=== PATIENT | female | born 1955 | race Caucasian/White ===

== ENCOUNTER 2024-07-20 17:47 | Inpatient (IN) | payer OTHER, SELFPAY ==
[2024-07-20 15:35] VITALS: BP 169/90
--- NOTE | 2024-07-20 16:06 | ED.GENMED ---
History of Present Illness
General
Chief Complaint: Cardiac Symptoms
Source: patient
Exam Limitations: none
Time Seen by Provider: 07/20/24 15:42
History of Present Illness
History of Present Illness:
68yoF with a history of aortic stenosis s/p aortic valve replacement, AV block s/p pacemaker in 2016, hypertension, hyperlipidemia, type 2 diabetes presenting for evaluation of a pacemaker issue. Patient recently re-established with cardiology
after not having seen a physics teacher since before [facility]. She had an echocardiogram on 06/27/24 which showed severe stenosis of prosthetic aortic valve. She saw Dr. Soria last week and was scheduled to have a pacemaker interrogation today. She had
the interrogation done and was told that the device has reached the end of its life and she was told to go to the ED immediately because she could drop . Patient is scheduled to have a cardiac catheterization next week. She admits to having
intermittent episodes of dyspnea over the past 1-2 months. She denies any syncopal episodes or chest pain.
Phy Exam
General Physical Exam
General Presentation: well appearing and no apparent distress
General Skin: warm and dry
General Habitus: normal
General Mental: alert
ENT Exam
ENT Exam: normocephalic
Cardiovascular Exam
Cardiovascular Exam: systolic murmur
Pulmonary Exam
Pulmonary Exam: lungs clear, no respiratory distress, no rales, no crackles, no rhonchi and no wheezing
Neurological Exam
Neurological Exam: alert
Sukumar Coma Scale
Eye Opening: Spontaneous
Verbal Response: Oriented
Motor Response: Obeys Commands
GCS Total Score: 15
Skin Exam
Skin Exam: normal color and warm/dry
Psychiatric Exam
Psychiatric Exam: anxious
Course
Orders/Labs/Results
Orders:
Orders
07/20/24 15:43
Electrocardiogram (*1) Urgent
Reason for Study: PreOp
EKG- Treatment ONCE
07/20/24 16:05
Cardiac Monitoring- Treatment ONCE
CR Chest - 2 Views Urgent
Comment:
Reason For Exam: SOB
07/20/24 16:40
Complete Blood Count/With Diff Urgent
Comprehensive Metabolic Panel Urgent
Troponin I Urgent
07/20/24 17:03
Admit/Transfer Patient As Directed
Co-Sign Provider:
Level of Care: Inpatient admission
Assign to:: IVU
Physician / Group: keerthi alfredo
Diagnosis: end of pacemaker battery life, symp Aortic stenosis
Reason for Hospitalization: end of pacemaker battery life, symp Aortic stenosis
Expected length of stay greater than two midnights?: Yes
ELOS- Estimated Length of Stay in days: 7
I certify the patient meets the requirements for IP care: Yes
Code Status As Directed
Resuscitation Status: Full Code
07/20/24 17:07
PRN Pain Medication Management As Directed
May give lesser potent ordered pain med per pt: Yes
preference::
Protocol:: Medication orders for pain may be administered in a
manner that supports deferring to patient preference
when the pt is:
- Requesting an ordered lesser potent pain medication.
Least to most potent pain medications are defined
as: acetaminophen < NSAID < tramadol < opioids
(morphine, oxycodone, hydromorphone).
- Requesting a lesser dose of the same medication IF
ORDERED.
- Requesting a less intrusive route of administration
if both routes are prescribed by the provider (PO <
IV).
Abnormal Lab Results
07/20/24
16:40
MPV 10.5 H fL
(7.4-10.4)
Creatinine 0.5 L mg/dL
(0.6-1.0)
Glucose 231 H mg/dl
(70-99)
07/20/24 16:40
07/20/24 16:40
Vital Signs
Initial and Last Documented VS:
Initial Vital Signs
Temp Pulse Resp BP Pulse Ox
98.1 F 65 20 169/90 93
07/20/24 15:35 07/20/24 15:35 07/20/24 15:35 07/20/24 15:35 07/20/24 15:35
Last Documented Vital Signs
Temp Pulse Resp BP Pulse Ox
98.1 F 65 20 169/90 89
07/20/24 15:35 07/20/24 16:33 07/20/24 16:33 07/20/24 15:35 07/20/24 16:33
MDM/Problems Addressed
Differential Diagnosis Includes:
68yoF referred here by cardiology due to her pacemaker nearing the end of its battery life on today's interrogation. C/o intermittent dyspnea x 1-2 months. Currently being evaluated for TAVR after recent echo showed stenosis of prosthetic aortic
valve. Denies symptoms currently other than feeling anxious. BP 169/90. Remainder of vitals stable. She is well appearing in no distress.
EKG shows ventricular paced rhythm. Cardiac labs and CXR ordered. Cardiology consulted and patient admitted to the hospitalist service for further management.
*EKG
Interpreted by ED Provider?: Yes
EKG Intrepretation Date: 07/20/24
Heart Rate: 66
Rate: normal
Rhythm: PVC's and ventricular paced
Ischemia: non-specific ST changes
*Critical Care Note
Total Time (30-74mins, 75-104mins- exclusive of procedures): Not Applicable
ED Attending Note
-
Portions of this chart may have been created with voice recognition software.� Occasional wrong word or��sound alike� substitutions may have occurred due to the inherent limitations of voice recognition software.
Discharge Plan
Departure
Patient Disposition: Admit
Date of Disposition: 07/20/24
Time of Disposition: 16:13
Presentation/result/management discussed w/ accepting MD/DO: Hospitalist
Discharge Problem:
Pacemaker at end of battery life
Interventions
Interventions:
*Risk Screen - Suicide Last Done: 07/20/24 17:46
*General Assessment Last Done: 07/20/24 15:35
*Neglect/Abuse Screening Last Done: 07/20/24 16:39
*ED- Fall Risk Assessment Last Done: 07/20/24 17:54
*ED COVID-19 Vaccine History Last Done: 07/20/24 17:54
ED- Pulmonary Assessment Last Done: 07/20/24 17:10
ED- Cardiac Assessment Last Done: 07/20/24 17:10
--- NOTE | 2024-07-20 16:24 | HPS.HSE ---
Family Physician
<JOE Dumont - Last Filed: 07/20/24 18:06>
-
Family Physician:
Chief Complaint
<JOE Dumont - Last Filed: 07/20/24 18:06>
History of Present Illness
68-year-old female was evaluated by a superintendent drilling last week cardiology Dr. Soria at [facility] and was scheduled to have a pacemaker interrogation today. She was told that the device reached its end of its battery life and was told to
go to the ER immediately. She does report complaints of dyspnea over the past 1 to 2 months. She denies syncope, chest pain, palpitations, cough, fever, chills, abdominal pain, nausea, vomiting, diarrhea, urinary symptoms. She is scheduled to
have a cardiac cath next week. She was unaware that she had to follow her pacemaker for interrogations and battery life. She had Medtronic Permanent pacemaker placed in 2016 secondary to AV block during aortic stenosis surgery at [facility] in
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
<Curtis Hough MD - Last Filed: 07/20/24 17:37>
-
[place]
Medical History
<JOE Dumont - Last Filed: 07/20/24 18:06>
Past Medical History
Past Medical History: Reports Other
Additional Past Medical History:
Medtronic permanent pacemaker placed in 2016 secondary to AV block
history aortic stenosis status post AVR
HTN
HLD
DM 2
GERD
Renal calculi multiple with history of right nephrostomy tube status post removal of large stone from right kidney
Class I obesity
Past Surgical History: Reports Other
Additional Past Surgical History:
Cholecystectomy
Tonsillectomy as child
Medtronic pacemaker placed 2016 AV block [facility]-
Renal calculi removal
Aortic stenosis status post AVR 2016 [facility]-
Right knee arthroscopy x 2
Nephrostomy tube right kidney to extract large renal calculi
Social History
Tobacco: Former Smoker (15 years 1.5 pack a day quit 35 years ago)
Alcohol: None
Drug: None
Personal:
Living: With Family ()
Employment: Retired
Family History
Family History: Early CAD (Mother first [place] age 56, second [place] age 79, history of CVA in her 70s, father from cardiomegaly secondary to malaria at age 62)
Allergies / Home Medications
Allergies reflects when Allergies were last updated in [facility].
Home Medications with original date entered in [facility]
Allergy/Medication List:
Allergies
Allergy/AdvReac Type Severity Reaction Status Date / Time
Sulfa (Sulfonamide Allergy Unknown Verified 07/20/24 15:34
Antibiotics)
Home Medications
metformin 500 mg tablet,extended release 24 hr 500 mg PO QPM 07/20/24
metoprolol succinate 25 mg tablet,extended release 24 hr 25 mg PO QPM 07/20/24
omeprazole 20 mg capsule,delayed release 20 mg PO QPM 07/20/24
simvastatin 40 mg tablet 40 mg PO QPM 07/20/24
valsartan 320 mg tablet 320 mg PO QPM 07/20/24
Review of Systems
<JOE Dumont - Last Filed: 07/20/24 18:06>
-
History Source: Patient and Family ( at bedside)
A 12 point ROS was completed and negative except as noted: Yes
Constitutional: Denies Fever
EENT: Reports Other (Chronic postnasal drip); Denies Sore Throat
Respiratory: Reports Trouble Breathing (Occasional shortness of breath and dyspnea on exertion); Denies Cough
Cardiac: Denies Chest Pain, Diaphoresis, Palpitations or Syncope
Abdomen/GI: Denies Abdominal Pain, Nausea, Vomiting, Diarrhea, Constipated, Bloody Stools or Black Stools
: Denies Dysuria, Frequency, Flank Pain, Incontinence, Difficulty Voiding or Urgency
Musculoskeletal: Denies Joint Pain, Joint Swelling or Edema
Skin: Denies Itching or Rash
Neurological: Denies Dizzy, Headache or Weakness
Endocrine: Reports No Symptoms
Hematologic/Lymphatic: Reports No Symptoms
Psych: Reports Calm
Physical Exam
<JOE Dumont - Last Filed: 07/20/24 18:06>
Vital Signs
Vital Signs
Temp Pulse Resp BP Pulse Ox
98.1 F 65 20 169/90 93
07/20/24 15:35 07/20/24 15:35 07/20/24 15:35 07/20/24 15:35 07/20/24 15:35
Physical Exam
General: Comfortable, Conversant and Obese; No Pain, Fever or Chills
HEENT: NormoCephalic, Anicteric, PERRLA and [place] Conjunctivae
Respiratory: Clear; No Wheezes, Rales or Rhonchi
Cardiac: S1/S2, Murmur (3/6 systolic murmur) and Other (Paced rhythm); No Rub or Gallop
GI: Soft, Non Tender, Non Distended, Normal Bowel Sounds and No Hepatosplenomegaly
Genito-urinary: Deferred by me
Musculoskeletal: No Clubbing, No Cyanosis and No Edema
Skin: Warm and Dry; No Rash or Jaundice
Neuro: AO x 3, No Motor Deficits, Nonfocal/grossly intact, Cranial Nerves Intact, No Sensory Deficits and Tremors; No Slurred Speech, Facial Droop or Sedated
Psych: Calm
Data Reviewed
<JOE Dumont - Last Filed: 07/20/24 18:06>
-
Lab Data: Labs Reviewed by me
Impression/Plan
<JOE Dumont - Last Filed: 07/20/24 18:06>
-
Impression/plan:
Admit to IVU
#Medtronic permanent pacemaker end of battery life
#Placed during aortic valve replacement due to unicuspid aortic valve 2015 [facility]-
- Consult electrophysiology patient follows with [facility] cardiology
- Current ASSET RECOVERY SPECIALIST paced rhythm on EKG 66 bpm no previous EKGs
- Plan is for battery change on 07/24/2024
#Cardiac murmur suspect aortic stenosis
#Hx aortic valve replacement due to unicuspid aortic valve 2015 [facility]-
Is due for cardiac cath on 07/25/2024 with [facility] cardiology
#HTN�benign
BP 169/90
- Continue metoprolol succinate 25 mg every afternoon, valsartan 320 mg every afternoon
#DM2
Accu-Cheks with SSI, check HgbA1c
- Hold metformin 500 mg every afternoon
#GERD
- Continue omeprazole 20 mg every afternoon
#HLD
- Check lipid profile
- Continue Zocor 40 mg every afternoon
DVT prophylaxis
Subcu Lovenox
Full code
--- NOTE | 2024-07-20 16:37 | CON.CAR ---
Addendum entered and electronically signed by Jackson Pugh MD 07/20/24 17:29:
I saw and examined the patient.
The Surgical Coder's note was reviewed and I agree with the note.
Comment: Briefly, 68-year-old woman past medical history of TAVR and permanent pacemaker placed for complete heart block following TAVR procedure. She has not been regularly following with a drop wire hanger and recently established with Hakeem Soria.
Device interrogation in his office today determined that her pacemaker was at end-of-life and he recommended she proceed to [facility] emergency department for evaluation.
Spoke with electrophysiology. Tentative plan for pacemaker generator change on Monday 07/24.
Plan to monitor on telemetry here over the weekend
Patient is scheduled to meet with Dr. Healy in our office as well as have TAVR CT scan this coming Tuesday
Rest per Brit Conway
For now would keep those appointments
Original Note:
Consultation
Consultation Request
Date/Time Consultation Performed: 07/20/24
Requesting Provider: Dr. Hess
Performing Provider: Brit Conway PA-C for Dr. Pugh
Reason for Consultation: device EOS
Medical History
-
Chief Complaint: device issue
History of Present Illness:
Patient is a 68-year-old female with past medical history of unicuspid aortic valve status post bioprosthetic #21 Daniel aortic valve replacement in 2016 at [facility]. Her postoperative course was complicated by heart block requiring permanent
pacemaker placement, Medtronic. She reports postoperatively she was not told that anyone would need to follow her pacemaker, and therefore has not had device monitoring since implant by her recollection. She underwent echocardiogram 05/2024 which
showed evidence of severe prosthetic aortic valve stenosis with peak/mean gradients of 66/42 mmHg and SHAHNAZ 0.85 cm�. She was then referred to see Dr. Ma, CT surgery on 07/11/2024. He arranged patient to establish cardiovascular care with
Hakeem Soria, with initial visit on 07/12/2024. Her device was not interrogated at that visit and she was brought back for device interrogation today 07/20/2024. On interrogation, device was noted to be at end of service and she is device dependent,
therefore patient was referred to [facility] for generator change. She has no present complaints of chest pain, shortness of breath, palpitations, lightheadedness or dizziness.
PMH:
Congenital unicuspid aortic valve stenosis status post bioprosthetic #21 Daniel AVR 2016 at [facility]
Heart block status post Medtronic permanent pacemaker, right sided
Hypertension
Hyperlipidemia
Type 2 diabetes
Morbid obesity
Osteoporosis
Remote former smoker
Past Medical History
Past Medical History: Other (in HPI)
Social History
Tobacco: Former Smoker (remote)
Alcohol: None
Personal:
Living: With Family
Family History
Family History: Hypertension
Allergies / Home Medications
Allergy/AdvReac Type Severity Reaction Status Date / Time
Sulfa (Sulfonamide Allergy Unknown Verified 07/20/24 15:34
Antibiotics)
�Medication �Instructions �Recorded �Confirmed �Type
metformin 500 mg tablet,extended 500 mg PO QPM 07/20/24 07/20/24 History
release 24 hr
metoprolol succinate 25 mg 25 mg PO QPM 07/20/24 07/20/24 History
tablet,extended release 24 hr
omeprazole 20 mg capsule,delayed 20 mg PO QPM 07/20/24 07/20/24 History
release
simvastatin 40 mg tablet 40 mg PO QPM 07/20/24 07/20/24 History
valsartan 320 mg tablet 320 mg PO QPM 07/20/24 07/20/24 History
Review of Systems
-
History Source: Patient and Family
All other systems: Negative unless noted
Physical Exam
Vital Signs
Temp Pulse Resp BP Pulse Ox
98.1 F 65 20 169/90 93
07/20/24 15:35 07/20/24 15:35 07/20/24 15:35 07/20/24 15:35 07/20/24 15:35
Physical Exam
General: No Apparent Distress, Comfortable and Other (obese)
HEENT: Normocephalic, Anicteric and Moist Mucous Membranes
Respiratory: Clear and Non Labored Respirations
Cardiac: S1/S2 and Regular Rhythm
GI: Soft, Non Tender, Non Distended and Normal Bowel Sounds
Musculoskeletal: No Clubbing, No Cyanosis and No Edema
Skin: Warm and Dry
Neuro: AO x 3
Impression / Plan
-
Primary Director Of Security: Dr. Hakeem Soria
Assessment:
PPM EOS, pacemaker dependent
Congenital unicuspid aortic valve stenosis status post bioprosthetic #21 Daniel AVR 2016 at [facility]
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
Heart block status post Medtronic permanent pacemaker, right sided
Hypertension
Hyperlipidemia
Type 2 diabetes
Morbid obesity
Osteoporosis
Remote former smoker
ECHO 06/27/24: Peak/mean gradient 66/42 mmHg with SHAHNAZ 0.85 cm�
Plan:
- Patient presents on referral from [facility] cardiology office due to device interrogation in office today which showed device at end of service. She is pacemaker dependent and was referred to [facility] for further evaluation and
treatment.
- She is currently V-paced by EKG
- Will plan for generator change on 07/24/2024. If needed in interim, could consider for temp wire.
- Complicating matters, she is presently planned for evaluation with structural heart team, Dr. Healy on Tuesday 07/[address] scan to follow. She is tentatively planned for cath on 07/27
- Upon discussion with EP as well as interventional cardiology, will plan for generator change on Monday 07/24. Ideally would complete cath prior to generator change however TAVR CT results are necessary to have prior to cath to determine
measurements of coronaries to AV which helps to determine if stenting vs bypass would be better option for patient. therefore, will plan to keep structural heart team consult with Dr. Healy on 07/25 as planned with TAVR CT to follow. the cath she has
planned on 07/27 may need to be delayed to the following week to allow for TAVR CT to result fully as well as to allow PPM pocket to heal prior to receiving heparin needed for cath.
- d/w hospitalist HEALTH PROMOTION MANAGER
- d/w patient and at bedside
Data Reviewed
-
EKG: Tracing Personally Visualized and interpreted
Medical Tests (Nuc Med, Echo etc): Report Reviewed by me
Labs: Labs Reviewed by me
Old Records: Reviewed
[2024-07-20 16:48] LABS: % Basophils 0.4 % (0-2); % Eosinophils 2.4 % (0-6); % Immature Granulocytes 0.5 % (0-0.5); % Lymphocytes 25.2 % (20.5-51.1); % Monocytes 6.3 % (1.7-9.3); % Neutrophils 65.2 % (42.2-75.2); Absolute Eosinophils 0.2 10^3/uL (0-0.7); Absolute Lymphocytes 2.1 10^3/uL (1.2-3.4); Absolute Monocytes 0.5 10^3/uL (0.1-0.6); Absolute Neutrophils 5.5 10^3/uL (1.4-6.5); Hematocrit 42.3 % (37.0-47.0); Hemoglobin 14.6 g/dL (12.0-16.0); Mean Corp Hgb Conc. 34.5 g/dL (33.0-37.0); Mean Corpuscular Hgb 28.7 pg (27.0-31.0); Mean Corpuscular Volume 83.3 fL (81.0-99.0); Mean Platelet Volume 10.5 fL (7.4-10.4); Nucleated Red Blood Cells % 0 %; Platelet Count 185 10^3/uL (130-400); Red Blood Cell Count 5.08 10^6/uL (4.20-5.40); Red Cell Dist. Width 12.8 % (11.5-14.5); White Blood Cell Count 8.4 10^3/uL (4.8-10.8)
[2024-07-20 17:00] VITALS: BP 147/72
[2024-07-20 17:01] LABS: ALT (SGPT) 16 U/L (0-35); AST (SGOT) 22 U/L (14-36); Albumin 4.2 g/dl (3.5-5.0); Alkaline Phosphatase 48 U/L (38-126); Blood Urea Nitrogen 10 mg/dl (7-17); Calcium 9.4 mg/dl (8.4-10.2); Carbon Dioxide 24 mmol/L (22-30); Chloride 107 mmol/L (98-107); Glucose 231 mg/dl (70-99); Potassium 4.1 mmol/L (3.5-5.1); Sodium 139 mmol/L (135-145); Total Protein 7.2 g/dl (6.3-8.2); eGFR > 60.00
[2024-07-20 17:13] LABS: Troponin I < 0.012 ng/ml
--- NOTE | 2024-07-20 17:38 | W.PN.UPDATE ---
Update Note
Progress Note Update
I saw and examined the patient.
The NUTRITION AIDES TEACHER or PA's note was reviewed and I agree with the note.
Comment: 68-year-old female with past medical history of hypertension, hyperlipidemia, diabetes mellitus, GERD, aortic stenosis status post AVR, Medtronic permanent pacemaker secondary AV block CAD came to the hospital from cardiology office for
pacemaker. Patient also has stenosis of her aortic valve and has been seen by Dr. Ma for TAVR. Prior to the procedure patient has been scheduled for cardiac catheterization. Patient really denies any chest pain. Does noted dyspnea on
exertion. Admit to IVU. Monitor on telemetry. Pacemaker per cardiology. Hold metformin
General: Comfortable, Conversant and Obese; No Pain, Fever or Chills
HEENT: NormoCephalic, Anicteric, PERRLA and [place] Conjunctivae
Respiratory: Clear; No Wheezes, Rales or Rhonchi
Cardiac: S1/S2, Murmur (3/6 systolic murmur) and Other (Paced rhythm); No Rub or Gallop
GI: Soft, Non Tender, Non Distended, Normal Bowel Sounds
Musculoskeletal: No Edema
Neuro: AO x 3, No Motor Deficits, Nonfocal/grossly intact, Cranial Nerves Intact
Psych: Calm
I spent a total of 76 minutes with the patient or on the floor. More than 50% of this time involved counseling and coordination of care.
[2024-07-20 17:54] VITALS: BMI 44.9
[2024-07-20 18:14] VITALS: BP 145/77
[2024-07-20 20:57] VITALS: BP 156/84
[2024-07-20 21:20] VITALS: BP 162/75
[2024-07-20 21:39] LABS: Glucose - Point of Care 219 mg/dl (70-99)
[2024-07-20 21:43] VITALS: BMI 42.2
[2024-07-20] MEDS: LOVENOX 40 MG SC (22:07)
[2024-07-20] MEDS: DIOVAN 320 MG PO (22:07)
[2024-07-20] MEDS: PROTONIX 40 MG PO (22:07)
[2024-07-20] MEDS: TOPROL XL 25 MG PO (22:07)
[2024-07-20] MEDS: LIPITOR PO (22:09)
[2024-07-21] VITALS (7 sets, daily range): BP systolic 114–148; BP diastolic 67–83; PULSE 65
--- NOTE | 2024-07-21 00:26 | PTCARENOTE ---
Pt rec'd from ED on stretcher awake,alert joking with staff. ambulated safely to bathroom with no c/o dizziness. Adm hx taken and recorded. Pt refused Lipitor at HS stating she had severe leg cramps when taking that so tolerates Simvastatin better.
to bring in from home if ok with Physician to switch. V paced on telemetry ,+ murmur. HS accu check 219 pt reports having ate a sandwich in ED just an hour prior.
[2024-07-21 05:43] LABS: % Basophils 0.5 % (0-2); % Eosinophils 2.9 % (0-6); % Immature Granulocytes 0.4 % (0-0.5); % Lymphocytes 40.2 % (20.5-51.1); % Monocytes 7.9 % (1.7-9.3); % Neutrophils 48.1 % (42.2-75.2); Absolute Eosinophils 0.2 10^3/uL (0-0.7); Absolute Lymphocytes 3.3 10^3/uL (1.2-3.4); Absolute Monocytes 0.7 10^3/uL (0.1-0.6); Absolute Neutrophils 3.9 10^3/uL (1.4-6.5); Hematocrit 41.1 % (37.0-47.0); Hemoglobin 13.5 g/dL (12.0-16.0); Mean Corp Hgb Conc. 32.8 g/dL (33.0-37.0); Mean Corpuscular Hgb 28.1 pg (27.0-31.0); Mean Corpuscular Volume 85.6 fL (81.0-99.0); Mean Platelet Volume 10.6 fL (7.4-10.4); Nucleated Red Blood Cells % 0 %; Platelet Count 182 10^3/uL (130-400); Red Cell Dist. Width 12.8 % (11.5-14.5); White Blood Cell Count 8.2 10^3/uL (4.8-10.8)
[2024-07-21 06:01] LABS: ALT (SGPT) 13 U/L (0-35); AST (SGOT) 20 U/L (14-36); Albumin 3.8 g/dl (3.5-5.0); Alkaline Phosphatase 42 U/L (38-126); Blood Urea Nitrogen 10 mg/dl (7-17); Calcium 9.2 mg/dl (8.4-10.2); Carbon Dioxide 32 mmol/L (22-30); Chloride 106 mmol/L (98-107); Estimated Creatinine Clearance 76 ml/min; Glucose 208 mg/dl (70-99); HDL Cholesterol 44 mg/dl; LDL Cholesterol, Calculated 61 mg/dl; Potassium 3.9 mmol/L (3.5-5.1); Sodium 141 mmol/L (135-145); Total Bilirubin 0.8 mg/dl (0.2-1.3); Total Cholesterol 180 mg/dl (50-199); Total Protein 6.8 g/dl (6.3-8.2); Triglyceride 379 mg/dl (10-149); Very Low Density Lipoprotein 75 mg/dl (0-30); eGFR > 60.00
--- NOTE | 2024-07-21 08:23 | W.PN.CARDCBS ---
Today's Communication / Plan
-
After discussion with EP, tentative plan for pacemaker generator change on Monday 07/24.
Cont to monitor on telemetry
Patient is scheduled to meet with Dr. Healy in our office as well as have TAVR CT scan this coming Tuesday 07/25 and she is tentatively planned for cath on 07/27
For now would keep those appointments
Remains Ventricular paced.
HR and bp stable.
Impression / Plan
-
.
Primary Die Casting Supervisor: Dr. Hakeem Soria
Impression:
PPM EOS, pacemaker dependent
Congenital unicuspid aortic valve stenosis status post bioprosthetic #21 Daniel AVR 2016 at [facility]
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
Heart block status post Medtronic permanent pacemaker, right sided
Hypertension
Hyperlipidemia
Type 2 diabetes
Morbid obesity
Osteoporosis
Remote former smoker
ECHO 06/27/24: Peak/mean gradient 66/42 mmHg with SHAHNAZ 0.85 cm�
Plan:
HPI: Briefly, 68-year-old woman past medical history of TAVR and permanent pacemaker placed for complete heart block following TAVR procedure. She has not been regularly following with a rug setter velvet and recently established with Hakeem Soria.
Device interrogation in his office today determined that her pacemaker was at end-of-life and he recommended she proceed to [facility] emergency department for evaluation.
After discussion with EP, tentative plan for pacemaker generator change on Monday 07/24.
Cont to monitor on telemetry
Patient is scheduled to meet with Dr. Healy in our office as well as have TAVR CT scan this coming Tuesday 07/25 and she is tentatively planned for cath on 07/27
For now would keep those appointments
Remains Ventricular paced.
HR and bp stable.
Discussed with nursing
Progress Note - Die Casting Supervisor
Subjective
Date of Service: July 21, 2024
Pt seen and examined. No complaints. No chest pain or shortness of breath.
Objective
Labs:
07/21/24 05:05
07/21/24 05:05
Labs
Hgb 13.5 g/dL (12.0-16.0) 07/21/24 05:05
Hct 41.1 % (37.0-47.0) 07/21/24 05:05
Plt Count 182 10^3/uL (130-400) 07/21/24 05:05
Sodium 141 mmol/L (135-145) 07/21/24 05:05
Potassium 3.9 mmol/L (3.5-5.1) 07/21/24 05:05
BUN 10 mg/dl (7-17) 07/21/24 05:05
Creatinine 0.7 mg/dL (0.6-1.0) 07/21/24 05:05
Glucose 208 mg/dl (70-99) H 07/21/24 05:05
Troponins
07/20/24
16:40
Troponin I < 0.012
Vital Signs and I&O:
Vital Signs
Temp Pulse Resp BP Pulse Ox
97.5 F 65 20 145/75 96
07/21/24 04:57 07/21/24 04:45 07/21/24 04:57 07/21/24 04:58 07/20/24 21:20
Vital Signs
Temp Pulse Resp BP Pulse Ox
97.5 F 65 20 145/75 96
07/21/24 04:57 07/21/24 04:45 07/21/24 04:57 07/21/24 04:58 07/20/24 21:20
Intake & Output
07/19/24 07/20/24 07/21/24 07/22/24
06:59 06:59 06:59 06:59
Intake Total 100 / 100
Balance 100 / 100
Physical Exam
Physical Exam
General: No acute distress, AAOX3
Neck: Negative JVD
Heart: Regular, Negative S3 positive S1/S2, Negative S4, No murmur
Lungs: CTA b/l, negative wheezes/rales/rhonchi
Abd: Morbid obesity. Positive BS, NT/ND, neg rebound/rigidity/guarding
Ext: Negative cyanosis/clubbing/edema
Neuro: nonfocal
[2024-07-21 08:39] LABS: Glucose - Point of Care 204 mg/dl (70-99)
[2024-07-21] MEDS: NOVOLOG FLEXPEN-LOW RESISTANCE 2 UNITS SC (08:40)
--- NOTE | 2024-07-21 11:45 | W.PN.HOSP.TC ---
Today's Communication/Plan
-
Monitor vitals
see plan
Monitor telemetry
Continue with metoprolol, valsartan
Per cardiology, pacemaker generator change Monday 07/24
Assessment / Plan
Assessment / Plan
General: Comfortable, Conversant and Obese; No Pain, Fever or Chills
HEENT: NormoCephalic, Anicteric, PERRLA and [place] Conjunctivae
Respiratory: Clear; No Wheezes, Rales or Rhonchi
Cardiac: S1/S2, Murmur (3/6 systolic murmur) and Other (Paced rhythm)
GI: Soft, Non Tender, Non Distended, Normal Bowel Sounds
Musculoskeletal: No Edema
Neuro: AO x 3, No Motor Deficits, Nonfocal/grossly intact, Cranial Nerves Intact
Psych: Calm
Medtronic permanent pacemaker end of battery life
#Placed during aortic valve replacement due to unicuspid aortic valve 2015 [facility]-
- Consult electrophysiology patient follows with [facility]
- Current DAYCARE MANAGER paced rhythm on EKG 66 bpm no previous EKGs
- Plan is for battery change on 07/24/2024
#Cardiac murmur suspect aortic stenosis
#Hx aortic valve replacement due to unicuspid aortic valve 2015 [facility]-
Is due for cardiac cath on 07/25/2024 with [facility]ology
#HTN�benign
- Continue metoprolol, valsartan
#DM2
Accu-Cheks with SSI, check HgbA1c
- Hold metformin
#GERD
- Continue omeprazole
#HLD
- Continue Zocor
DVT prophylaxis
Subcu Lovenox
Full code
Anticipated Discharge: > 48 hours
Subjective/Interval History
-
Date of Service: July 21, 2024
Denies chest pain
Objective Data
-
Labs:
Laboratory Results
07/21/24
05:05
WBC 8.2
Hgb 13.5
Hct 41.1
Plt Count 182
Sodium 141
Potassium 3.9
Chloride 106
Carbon Dioxide 32 H
BUN 10
Creatinine 0.7
Glucose 208 H
Calcium 9.2
Total Bilirubin 0.8
AST 20
ALT 13
Alkaline Phosphatase 42
Vital Signs:
Vital Signs
Temp Pulse Resp BP Pulse Ox
97.5 F 65 18 145/75 98
07/21/24 07:10 07/21/24 04:45 07/21/24 07:10 07/21/24 04:58 07/21/24 07:10
I&O
07/20/24 07/21/24 07/22/24
06:59 06:59 06:59
Intake Total 100 / 100
Balance 100 / 100
[2024-07-21 12:36] LABS: Glucose - Point of Care 260 mg/dl (70-99)
[2024-07-21] MEDS: NOVOLOG FLEXPEN-LOW RESISTANCE 3 UNITS SC (12:57)
--- NOTE | 2024-07-21 14:24 | PTCARENOTE ---
Pt oob ambulating in room, denies dizziness, denies SOB. She remains V-paced on the monitor, HR mainly 60's
[2024-07-21 17:43] LABS: Glucose - Point of Care 173 mg/dl (70-99)
[2024-07-21] MEDS: NOVOLOG FLEXPEN-LOW RESISTANCE 1 UNITS SC (18:49)
[2024-07-21] MEDS: PROTONIX 40 MG PO (18:52)
[2024-07-21] MEDS: DIOVAN 320 MG PO (18:52)
[2024-07-21] MEDS: LOVENOX 40 MG SC (18:54)
[2024-07-21] MEDS: LIPITOR 20 MG PO (18:55)
[2024-07-21] MEDS: TOPROL XL PO (19:05)
--- NOTE | 2024-07-21 20:50 | PTCARENOTE ---
Patient received at change of shift out of bed to the chair. Reports feeling well overall. Denies feeling lightheaded or dizzy. Denies pain. Vpaced on the monitor. Oxygen saturation 94% on room air. Plan of care discussed. Call clay within reach.
Care ongoing
[2024-07-21 21:19] LABS: Glucose - Point of Care 200 mg/dl (70-99)
[2024-07-22] VITALS (8 sets, daily range): BP systolic 115–172; BP diastolic 65–88; BMI 41.8
[2024-07-22 04:22] LABS: % Basophils 0.5 % (0-2); % Immature Granulocytes 0.3 % (0-0.5); % Lymphocytes 41.2 % (20.5-51.1); % Monocytes 7.7 % (1.7-9.3); % Neutrophils 47.3 % (42.2-75.2); Absolute Eosinophils 0.2 10^3/uL (0-0.7); Absolute Lymphocytes 3.1 10^3/uL (1.2-3.4); Absolute Monocytes 0.6 10^3/uL (0.1-0.6); Absolute Neutrophils 3.6 10^3/uL (1.4-6.5); Hematocrit 41.5 % (37.0-47.0); Hemoglobin 13.9 g/dL (12.0-16.0); Mean Corp Hgb Conc. 33.5 g/dL (33.0-37.0); Mean Corpuscular Hgb 28.3 pg (27.0-31.0); Mean Corpuscular Volume 84.5 fL (81.0-99.0); Nucleated Red Blood Cells % 0 %; Platelet Count 185 10^3/uL (130-400); Red Blood Cell Count 4.91 10^6/uL (4.20-5.40); White Blood Cell Count 7.6 10^3/uL (4.8-10.8)
[2024-07-22 04:45] LABS: ALT (SGPT) 14 U/L (0-35); AST (SGOT) 21 U/L (14-36); Albumin 3.9 g/dl (3.5-5.0); Alkaline Phosphatase 38 U/L (38-126); Blood Urea Nitrogen 14 mg/dl (7-17); Calcium 9.7 mg/dl (8.4-10.2); Carbon Dioxide 28 mmol/L (22-30); Chloride 106 mmol/L (98-107); Estimated Creatinine Clearance 89 ml/min; Glucose 215 mg/dl (70-99); Potassium 4.1 mmol/L (3.5-5.1); Sodium 140 mmol/L (135-145); Total Bilirubin 0.7 mg/dl (0.2-1.3); Total Protein 6.8 g/dl (6.3-8.2); eGFR > 60.00
[2024-07-22 08:15] LABS: Glucose - Point of Care 202 mg/dl (70-99)
[2024-07-22] MEDS: NOVOLOG FLEXPEN-LOW RESISTANCE 2 UNITS SC (08:47)
--- NOTE | 2024-07-22 09:14 | W.PN.CARDCBS ---
Today's Communication / Plan
-
Tentative plan for pacemaker generator change on Monday 07/24.
Cont to monitor on telemetry
Patient is scheduled to meet with Dr. Healy in our office as well as have TAVR CT scan this coming Tuesday 07/25 and she is tentatively planned for cath on 07/27
For now would keep those appointments
Remains Ventricular paced.
HR and bp stable.
She is concerned about beta magdalena and her HR and will hold this. Cont ARB for HTN
Impression / Plan
-
.
Primary Registered Radiographer: Dr. Hakeem Soria
Impression:
PPM EOS, pacemaker dependent
Congenital unicuspid aortic valve stenosis status post bioprosthetic #21 Daniel AVR 2016 at [facility]
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
Heart block status post Medtronic permanent pacemaker, right sided
Hypertension
Hyperlipidemia
Type 2 diabetes
Morbid obesity
Osteoporosis
Remote former smoker
ECHO 06/27/24: Peak/mean gradient 66/42 mmHg with SHAHNAZ 0.85 cm�
Plan:
HPI: Briefly, 68-year-old woman past medical history of TAVR and permanent pacemaker placed for complete heart block following TAVR procedure. She has not been regularly following with a check writing machine operator and recently established with Hakeem Soria.
Device interrogation in his office today determined that her pacemaker was at end-of-life and he recommended she proceed to [place] emergency department for evaluation.
Tentative plan for pacemaker generator change on Monday 07/24.
Cont to monitor on telemetry
Patient is scheduled to meet with Dr. Healy in our office as well as have TAVR CT scan this coming Tuesday 07/25 and she is tentatively planned for cath on 07/27
For now would keep those appointments
Remains Ventricular paced.
HR and bp stable.
She is concerned about beta magdalena and her HR and will hold this. Cont ARB for HTN
Discussed with nursing
Progress Note - Registered Radiographer
Subjective
Date of Service: July 22, 2024
Pt seen and examined. No complaints. No chest pain or shortness of breath.
Objective
Labs:
07/22/24 03:21
07/22/24 03:21
Labs
Hgb 13.9 g/dL (12.0-16.0) 07/22/24 03:21
Hct 41.5 % (37.0-47.0) 07/22/24 03:21
Plt Count 185 10^3/uL (130-400) 07/22/24 03:21
Sodium 140 mmol/L (135-145) 07/22/24 03:21
Potassium 4.1 mmol/L (3.5-5.1) 07/22/24 03:21
BUN 14 mg/dl (7-17) 07/22/24 03:21
Creatinine 0.6 mg/dL (0.6-1.0) 07/22/24 03:21
Glucose 215 mg/dl (70-99) H 07/22/24 03:21
Troponins
07/20/24
16:40
Troponin I < 0.012
Vital Signs and I&O:
Vital Signs
Temp Pulse Resp BP Pulse Ox
97.5 F 65 20 160/86 93
07/22/24 08:01 07/22/24 09:00 07/22/24 08:01 07/22/24 07:59 07/22/24 08:01
Vital Signs
Temp Pulse Resp BP Pulse Ox
97.5 F 65 20 160/86 93
07/22/24 08:01 07/22/24 09:00 07/22/24 08:01 07/22/24 07:59 07/22/24 08:01
Intake & Output
07/20/24 07/21/24 07/22/24 07/23/24
06:59 06:59 06:59 06:59
Intake Total 100 / 100
Balance 100 / 100
Physical Exam
Physical Exam
General: No acute distress, AAOX3
Neck: Negative JVD
Heart: Regular, Negative S3 positive S1/S2, Negative S4, No murmur
Lungs: CTA b/l, negative wheezes/rales/rhonchi
Abd: Positive BS, NT/ND, neg rebound/rigidity/guarding
Ext: Negative cyanosis/clubbing/edema
Neuro: nonfocal
--- NOTE | 2024-07-22 10:16 | PTCARENOTE ---
Pt ambulating in room, denies pain, denies SOB, denies lightheadedness. She is V-paced on nib finisher with HR in 60's.
--- NOTE | 2024-07-22 11:38 | W.PN.HOSP.TC ---
Today's Communication/Plan
-
Monitor vitals
See plan
A1c 11, start insulin. Discussed with patient
Diabetes teaching
Holding metoprolol
Continue valsartan
Monitor on telemetry
Assessment / Plan
Assessment / Plan
General: Comfortable, Conversant and Obese; No Pain, Fever or Chills
HEENT: NormoCephalic, Anicteric, PERRLA and [place] Conjunctivae
Respiratory: Clear; No Wheezes, Rales or Rhonchi
Cardiac: S1/S2, Murmur (3/6 systolic murmur) and Other (Paced rhythm)
GI: Soft, Non Tender, Non Distended, Normal Bowel Sounds
Musculoskeletal: No Edema
Neuro: AO x 3, No Motor Deficits, Nonfocal/grossly intact, Cranial Nerves Intact
Psych: Calm
Medtronic permanent pacemaker end of battery life
#Placed during aortic valve replacement due to unicuspid aortic valve 2015 [facility]-
- Consult electrophysiology patient follows with [facility]
- Current MICROARRAY OPERATIONS VICE PRESIDENT paced rhythm on EKG 66 bpm no previous EKGs
- Plan is for battery change on 07/24/2024
#Cardiac murmur suspect aortic stenosis
#Hx aortic valve replacement due to unicuspid aortic valve 2015 [facility]-
Is due for cardiac cath on 07/25/2024 with [facility]ology
#HTN�benign
- hold metoprolol, continue valsartan
#DM2
Accu-Cheks with SSI, HgbA1c 11
- Hold metformin. Start insulin Lantus and meal time.
per patient she was not aware that she needs to check her sugars at home, diabetes consult for insulin and monitor teaching.
#GERD
- Continue omeprazole
#HLD
- Continue Zocor
DVT prophylaxis
Subcu Lovenox
Full code
I spent a total of 52 minutes with the patient or on the floor. More than 50% of this time involved counseling and coordination of care.
Anticipated Discharge: > 48 hours
Subjective/Interval History
-
Date of Service: July 22, 2024
denies pain
Objective Data
-
Labs:
Laboratory Results
07/22/24
03:21
WBC 7.6
Hgb 13.9
Hct 41.5
Plt Count 185
Sodium 140
Potassium 4.1
Chloride 106
Carbon Dioxide 28
BUN 14
Creatinine 0.6
Glucose 215 H
Calcium 9.7
Total Bilirubin 0.7
AST 21
ALT 14
Alkaline Phosphatase 38
Vital Signs:
Vital Signs
Temp Pulse Resp BP Pulse Ox
97.9 F 65 20 160/86 93
07/22/24 11:00 07/22/24 09:00 07/22/24 11:00 07/22/24 07:59 07/22/24 11:00
I&O
07/21/24 07/22/24 07/23/24
06:59 06:59 06:59
Intake Total 100 / 100
Balance 100 / 100
[2024-07-22 13:12] LABS: Glucose - Point of Care 218 mg/dl (70-99)
[2024-07-22] MEDS: NOVOLOG FLEXPEN 3 UNITS SC ×2 (13:14→17:39)
[2024-07-22] MEDS: NOVOLOG FLEXPEN-LOW RESISTANCE 300 UNITS SC (13:14)
[2024-07-22 16:49] LABS: Glucose - Point of Care 173 mg/dl (70-99)
[2024-07-22] MEDS: DIOVAN 320 MG PO (17:37)
[2024-07-22] MEDS: LIPITOR 20 MG PO (17:38)
[2024-07-22] MEDS: LOVENOX 40 MG SC (17:38)
[2024-07-22] MEDS: NOVOLOG FLEXPEN-LOW RESISTANCE 1 UNITS SC (17:38)
[2024-07-22] MEDS: PROTONIX 40 MG PO (17:38)
[2024-07-22 22:20] LABS: Glucose - Point of Care 171 mg/dl (70-99)
[2024-07-22] MEDS: LANTUS 0.1 UNITS SC (22:28)
--- NOTE | 2024-07-22 23:45 | PTCARENOTE ---
Patient received at change of shift out of bed to the chair. Denies pain. Denies feeling lightheaded or dizzy. States she feels well overall. Vpaced on the monitor. Oxygen saturation 93% on room air. Discussed plan of care. Call clay within reach.
Care ongoing
[2024-07-23] VITALS (7 sets, daily range): BP systolic 120–153; BP diastolic 60–96; BMI 41.9
[2024-07-23 03:48] LABS: % Basophils 0.6 % (0-2); % Eosinophils 3.5 % (0-6); % Immature Granulocytes 0.5 % (0-0.5); % Lymphocytes 41.4 % (20.5-51.1); % Monocytes 7.1 % (1.7-9.3); % Neutrophils 46.9 % (42.2-75.2); Absolute Basophils 0.1 10^3/uL (0-0.2); Absolute Eosinophils 0.3 10^3/uL (0-0.7); Absolute Lymphocytes 3.4 10^3/uL (1.2-3.4); Absolute Monocytes 0.6 10^3/uL (0.1-0.6); Absolute Neutrophils 3.9 10^3/uL (1.4-6.5); Hematocrit 41.4 % (37.0-47.0); Hemoglobin 14.1 g/dL (12.0-16.0); Mean Corp Hgb Conc. 34.1 g/dL (33.0-37.0); Mean Corpuscular Hgb 28.3 pg (27.0-31.0); Mean Platelet Volume 10.3 fL (7.4-10.4); Nucleated Red Blood Cells % 0 %; Platelet Count 180 10^3/uL (130-400); Red Blood Cell Count 4.99 10^6/uL (4.20-5.40); Red Cell Dist. Width 12.9 % (11.5-14.5); White Blood Cell Count 8.2 10^3/uL (4.8-10.8)
[2024-07-23 04:06] LABS: ALT (SGPT) 16 U/L (0-35); AST (SGOT) 26 U/L (14-36); Albumin 4.1 g/dl (3.5-5.0); Alkaline Phosphatase 39 U/L (38-126); Blood Urea Nitrogen 13 mg/dl (7-17); Calcium 9.7 mg/dl (8.4-10.2); Carbon Dioxide 26 mmol/L (22-30); Chloride 106 mmol/L (98-107); Estimated Creatinine Clearance 76 ml/min; Glucose 188 mg/dl (70-99); Potassium 3.7 mmol/L (3.5-5.1); Sodium 140 mmol/L (135-145); Total Protein 7.1 g/dl (6.3-8.2); eGFR > 60.00
[2024-07-23 07:50] LABS: Glucose - Point of Care 192 mg/dl (70-99)
[2024-07-23] MEDS: NOVOLOG FLEXPEN-LOW RESISTANCE 1 UNITS SC ×2 (09:42→19:02)
[2024-07-23] MEDS: NOVOLOG FLEXPEN 3 UNITS SC ×3 (09:42→19:03)
--- NOTE | 2024-07-23 12:11 | W.PN.HOSP.TC ---
Today's Communication/Plan
-
NPO past MN
c/w insulin care
Assessment / Plan
Assessment / Plan
Physical exam:
General: Comfortable, Conversant and Obese; No Pain, Fever or Chills
HEENT: NormoCephalic, Anicteric, PERRLA and [place] Conjunctivae
Respiratory: Clear; No Wheezes, Rales or Rhonchi
Cardiac: S1/S2, Murmur (3/6 systolic murmur) and Other (Paced rhythm)
GI: Soft, Non Tender, Non Distended, Normal Bowel Sounds
Musculoskeletal: No Edema
Neuro: AO x 3, No Motor Deficits, Nonfocal/grossly intact, Cranial Nerves Intact
Psych: Calm
Medtronic permanent pacemaker end of battery life
#Placed during aortic valve replacement due to unicuspid aortic valve 2015 [facility]-
- Consult electrophysiology patient follows with [facility]
- Current PRESSURE DISPATCHER paced rhythm on EKG 66 bpm no previous EKGs
- Plan is for battery change on 07/24/2024
#Cardiac murmur suspect aortic stenosis
#Hx aortic valve replacement due to unicuspid aortic valve 2015 [facility]-
Is due for cardiac cath on 07/25/2024 with [facility]ology
#HTN�benign
- hold metoprolol, continue valsartan
#DM2
Patient reported that she follows with primary care doctors at [place] before starting with Dr. Isabell Serrano. She was never told about her hemoglobin A1c or diabetes management. She is starting newly with Dr. Serrano and looking forward
for further management and care.
Accu-Cheks with SSI, HgbA1c 11
- Stopped metformin. Started insulin Lantus and meal time. Increase Lantus to better control blood glucose. Consult rn diabetes educator, help appreciated
# Obesity
BMI 41
we discussed that and pt seemed motivated to f/w her PCP to address further options.
#GERD
- Continue Protonix.
#HLD
- Continue Lipitor.
DVT prophylaxis
Subcu Lovenox
Full code
Total time spent to see the patient, examine the patient, review data and lab results, discuss treatment plan with patient, her and nursing staff around 55 minutes
Anticipated Discharge: 24 - 48 hours
Subjective/Interval History
-
Date of Service: July 23, 2024
No chest pain
No sob
No fevers
Objective Data
-
Labs:
Laboratory Results
07/23/24
03:16
WBC 8.2
Hgb 14.1
Hct 41.4
Plt Count 180
Sodium 140
Potassium 3.7
Chloride 106
Carbon Dioxide 26
BUN 13
Creatinine 0.7
Glucose 188 H
Calcium 9.7
Total Bilirubin 1.0
AST 26
ALT 16
Alkaline Phosphatase 39
Vital Signs:
Vital Signs
Temp Pulse Resp BP Pulse Ox
97.7 F 66 20 136/60 93
07/23/24 11:11 07/23/24 08:00 07/23/24 11:11 07/23/24 07:47 07/23/24 11:11
--- NOTE | 2024-07-23 12:19 | W.PN.CARDCBS ---
Today's Communication / Plan
-
Plan for pacemaker generator change tomorrow
Continue to monitor on telemetry
Impression / Plan
-
.
Primary Chainstitch Hemmer: Dr. Hakeem Soria
Impression:
PPM EOS, pacemaker dependent
Congenital unicuspid aortic valve stenosis status post bioprosthetic #21 Daniel AVR 2016 at [facility]
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
Heart block status post Medtronic permanent pacemaker, right sided
Hypertension
Hyperlipidemia
Type 2 diabetes
Morbid obesity
Osteoporosis
Remote former smoker
ECHO 06/27/24: Peak/mean gradient 66/42 mmHg with SHAHNAZ 0.85 cm�
Plan:
HPI: Briefly, 68-year-old woman past medical history of TAVR and permanent pacemaker placed for complete heart block following TAVR procedure. She has not been regularly following with a supervisor assembly department and recently established with Hakeem Soria.
Device interrogation in his office today determined that her pacemaker was at end-of-life and he recommended she proceed to [place] emergency department for evaluation.
Tentative plan for pacemaker generator change on Monday 07/24.
Cont to monitor on telemetry
Patient is scheduled to meet with Dr. Healy in our office as well as have TAVR CT scan this coming Tuesday 07/25 and she is tentatively planned for cath on 07/27
For now would keep those appointments
Remains Ventricular paced.
HR and bp stable.
She is concerned about beta magdalena and her HR and will hold this. Cont ARB for HTN
Discussed with nursing
Progress Note - Chainstitch Hemmer
Subjective
Date of Service: July 23, 2024
No acute overnight events. Resting comfortably in the IVU. Tells me she is able to walk the halls without cardiac symptoms. Remains V-paced at 65 on telemetry.
Objective
Labs:
07/23/24 03:16
07/23/24 03:16
Labs
Hgb 14.1 g/dL (12.0-16.0) 07/23/24 03:16
Hct 41.4 % (37.0-47.0) 07/23/24 03:16
Plt Count 180 10^3/uL (130-400) 07/23/24 03:16
Sodium 140 mmol/L (135-145) 07/23/24 03:16
Potassium 3.7 mmol/L (3.5-5.1) 07/23/24 03:16
BUN 13 mg/dl (7-17) 07/23/24 03:16
Creatinine 0.7 mg/dL (0.6-1.0) 07/23/24 03:16
Glucose 188 mg/dl (70-99) H 07/23/24 03:16
Troponins
07/20/24
16:40
Troponin I < 0.012
Vital Signs and I&O:
Vital Signs
Temp Pulse Resp BP Pulse Ox
97.7 F 66 20 136/60 93
07/23/24 11:11 07/23/24 08:00 07/23/24 11:11 07/23/24 07:47 07/23/24 11:11
Vital Signs
Temp Pulse Resp BP Pulse Ox
97.7 F 66 20 136/60 93
07/23/24 11:11 07/23/24 08:00 07/23/24 11:11 07/23/24 07:47 07/23/24 11:11
Intake & Output
07/21/24 07/22/24 07/23/24 07/24/24
06:59 06:59 06:59 06:59
Intake Total 100 / 100
Balance 100 / 100
Physical Exam
Physical Exam
Gen: NAD, AAOx3
HEENT: NC/AT, sclera anicteric
Neck: No JVD
CV: RRR, NL s1/s2, no M/R/G
Lungs: CTAB
Abd: S/ND
Ext: No LE edema
Skin: Warm, dry
Neuro: Non-focal
[2024-07-23 12:42] LABS: Glucose - Point of Care 232 mg/dl (70-99)
[2024-07-23] MEDS: NOVOLOG FLEXPEN-LOW RESISTANCE 2 UNITS SC (13:37)
[2024-07-23 17:02] LABS: Glucose - Point of Care 177 mg/dl (70-99)
[2024-07-23] MEDS: DIOVAN 320 MG PO (17:05)
[2024-07-23] MEDS: LIPITOR PO (17:06)
[2024-07-23] MEDS: PROTONIX 40 MG PO (17:06)
[2024-07-23] MEDS: LOVENOX 40 MG SC (17:06)
--- NOTE | 2024-07-23 17:15 | PTCARENOTE ---
Pt OOB up in a chair and walking in halls. She denies any discomfort. Telemetry shows 100% vent. paced rhythm @60.
Pt instructed on administering her own novolog, able to give accurately with assistance, will reinforce, plan for diabetic consult.
[2024-07-23 22:09] LABS: Glucose - Point of Care 199 mg/dl (70-99)
[2024-07-23] MEDS: LANTUS 0.17 UNITS SC (22:21)
--- NOTE | 2024-07-23 23:55 | PTCARENOTE ---
Patient received at change of shift out of bed to the chair. Offers no complaints at this time. Denies feeling lightheaded or dizzy. Denies pain. Vpaced on telemetry. Oxygen saturation 93% on room air. Plan of care discussed including nothing to eat
or drink after midnight for anticipated pacemaker joaquin change tomorrow. Call clay within reach. Care ongoing.
[2024-07-24] VITALS (12 sets, daily range): BP systolic 131–154; BP diastolic 68–96; BMI 41.8
[2024-07-24 06:46] LABS: % Basophils 0.6 % (0-2); % Eosinophils 3.2 % (0-6); % Immature Granulocytes 0.4 % (0-0.5); % Lymphocytes 35.3 % (20.5-51.1); % Neutrophils 53.5 % (42.2-75.2); Absolute Eosinophils 0.2 10^3/uL (0-0.7); Absolute Lymphocytes 2.4 10^3/uL (1.2-3.4); Absolute Monocytes 0.5 10^3/uL (0.1-0.6); Absolute Neutrophils 3.7 10^3/uL (1.4-6.5); Hematocrit 48.6 % (37.0-47.0); Hemoglobin 16.1 g/dL (12.0-16.0); Mean Corp Hgb Conc. 33.1 g/dL (33.0-37.0); Mean Corpuscular Hgb 28.4 pg (27.0-31.0); Mean Corpuscular Volume 85.9 fL (81.0-99.0); Mean Platelet Volume 10.3 fL (7.4-10.4); Nucleated Red Blood Cells % 0 %; Platelet Count 174 10^3/uL (130-400); Red Blood Cell Count 5.66 10^6/uL (4.20-5.40); White Blood Cell Count 6.9 10^3/uL (4.8-10.8)
[2024-07-24 07:18] LABS: ALT (SGPT) 22 U/L (0-35); AST (SGOT) 33 U/L (14-36); Albumin 4.3 g/dl (3.5-5.0); Alkaline Phosphatase 39 U/L (38-126); Blood Urea Nitrogen 15 mg/dl (7-17); Calcium 9.8 mg/dl (8.4-10.2); Carbon Dioxide 27 mmol/L (22-30); Chloride 105 mmol/L (98-107); Estimated Creatinine Clearance 76 ml/min; Glucose 199 mg/dl (70-99); Potassium 3.7 mmol/L (3.5-5.1); Sodium 141 mmol/L (135-145); Total Bilirubin 1.1 mg/dl (0.2-1.3); Total Protein 7.3 g/dl (6.3-8.2); eGFR > 60.00
[2024-07-24 07:31] LABS: Glucose - Point of Care 187 mg/dl (70-99)
[2024-07-24] MEDS: NOVOLOG FLEXPEN SC ×2 (08:13→11:40)
[2024-07-24] MEDS: NOVOLOG FLEXPEN-LOW RESISTANCE SC ×2 (08:14→11:40)
--- NOTE | 2024-07-24 08:42 | W.PN.CARDCBS ---
Today's Communication / Plan
-
Generator change today and then likely d/c to home
Will rearrange outpatient TAVR consultation, CT scan and cath for next week
Impression / Plan
-
Primary Community Center Worker: Dr. Hakeem Soria
Impression:
Admitted with PPM at end of battery life and pacemaker dependent 07/20/24
s/p Medtronic PPM 09/18/15
pacemaker dependent for CHB
Congenital unicuspid aortic valve stenosis status post bioprosthetic #21 Daniel AVR at [facility] 2015
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
outpatient TAVR evaluation under way
HTN
Hyperlipidemia
Type 2 diabetes
Morbid obesity
Osteoporosis
Remote former smoker
ECHO 06/27/24: Peak/mean gradient 66/42 mmHg with SHAHNAZ 0.85 cm�
Plan:
-Patient remains V paced with known pacemaker dependency and a Medtronic PPM that was at end of service when checked by primary hammer adjuster, Dr. Soria's office, 07/20/24. Patient had also been seen by Dr. Soria 07/12/24 and they noted that her last
device check was roughly 2019, patient says that she had no idea that her PPM required regular checks.
-Plan is for generator change 07/24/24 and then d/c to home
-Patient is scheduled for office visit with Dr. Healy 07/25/24 at 0740 to discuss severe bioprosthetic AVR stenosis, then CT scan later on 07/25/24 and finally cardiac cath 07/27/24. Updated patient on 07/24/24 that outpatient testing and consultations
cannot be performed as an inpatient and that we will work on rescheduling consultation, CT scan adn cath for next week.
-Outpatient dose of Toprol XL 25 mg daily is on hold and will be restarted after PPM
-Outpatient dose of valsartan 320 mg daily has been continued
-Anticipate d/c to home 07/24/24 after generator change.
HPI: Briefly, 68-year-old woman past medical history of TAVR and permanent pacemaker placed for complete heart block following TAVR procedure. She has not been regularly following with a hammer adjuster and recently established with Hakeem Soria.
Device interrogation in his office today determined that her pacemaker was at end-of-life and he recommended she proceed to [place] emergency department for evaluation.
Progress Note - Community Center Worker
Subjective
Date of Service: July 24, 2024
She feels well, no pain
Objective
Labs:
07/24/24 06:25
07/24/24 06:25
Labs
Hgb 16.1 g/dL (12.0-16.0) H 07/24/24 06:25
Hct 48.6 % (37.0-47.0) H 07/24/24 06:25
Plt Count 174 10^3/uL (130-400) 07/24/24 06:25
Sodium 141 mmol/L (135-145) 07/24/24 06:25
Potassium 3.7 mmol/L (3.5-5.1) 07/24/24 06:25
BUN 15 mg/dl (7-17) 07/24/24 06:25
Creatinine 0.7 mg/dL (0.6-1.0) 07/24/24 06:25
Glucose 199 mg/dl (70-99) H 07/24/24 06:25
Vital Signs and I&O:
Vital Signs
Temp Pulse Resp BP Pulse Ox
97.7 F 65 16 150/84 95
07/24/24 04:04 07/24/24 07:29 07/24/24 04:04 07/24/24 07:29 07/24/24 04:04
Vital Signs
Temp Pulse Resp BP Pulse Ox
97.7 F 65 16 150/84 95
07/24/24 04:04 07/24/24 07:29 07/24/24 04:04 07/24/24 07:29 07/24/24 04:04
Intake & Output
07/22/24 07/23/24 07/24/24 07/25/24
06:59 06:59 06:59 06:59
Intake Total 240 / 240
Balance 240 / 240
Physical Exam
Physical Exam
GEN: NAD. AAOx3
HEENT: EOMI, MMM
LUNGS: RA. No audible wheeze
CV: V paced on tele
--- NOTE | 2024-07-24 08:55 | W.PN.HOSP.TC ---
Today's Communication/Plan
-
NPO for pacer battery exchange
Hope to discharge soon
Assessment / Plan
Assessment / Plan
Physical exam:
General: Comfortable, Conversant and Obese; No Pain, Fever or Chills
HEENT: NormoCephalic, Anicteric, PERRLA and [place] Conjunctivae
Respiratory: Clear; No Wheezes, Rales or Rhonchi
Cardiac: S1/S2, Murmur (3/6 systolic murmur) and Other (Paced rhythm)
GI: Soft, Non Tender, Non Distended, Normal Bowel Sounds
Musculoskeletal: No Edema
Neuro: AO x 3, No Motor Deficits, Nonfocal/grossly intact, Cranial Nerves Intact
Psych: Calm
Medtronic permanent pacemaker end of battery life
#Placed during aortic valve replacement due to unicuspid aortic valve 2015 [facility]-
- Consult electrophysiology patient follows with [facility]
- Current SENIOR TALENT ACQUISITION SPECIALIST paced rhythm on EKG 66 bpm no previous EKGs
- Plan is for battery change on 07/24/2024
#Cardiac murmur suspect aortic stenosis
#Hx aortic valve replacement due to unicuspid aortic valve 2015 [facility]-
Is due for cardiac cath on 07/25/2024 with [facility] cardiology
#HTN�benign
- hold metoprolol, continue valsartan
#DM2
Patient reported that she follows with primary care doctors at [place] before starting with Dr. Isabell Serrano. She was never told about her hemoglobin A1c or diabetes management. She is starting newly with Dr. Serrano and looking forward
for further management and care.
Accu-Cheks with SSI, HgbA1c 11
- Stopped metformin. Started insulin Lantus and meal time. Increase Lantus to better control blood glucose. Consult outreach educator, help appreciated
# Obesity
BMI 41
we discussed that and pt seemed motivated to f/w her PCP to address further options.
#GERD
- Continue Protonix.
#HLD
- Continue Lipitor.
DVT prophylaxis
Subcu Lovenox
Full code
Total time spent to see the patient, examine the patient, review data and lab results, discuss treatment plan with patient and nursing staff around 55 minutes
Anticipated Discharge: Within 24 hours
Subjective/Interval History
-
Date of Service: July 24, 2024
No chest pain
No sob
Objective Data
-
Labs:
Laboratory Results
07/24/24
06:25
WBC 6.9
Hgb 16.1 H
Hct 48.6 H
Plt Count 174
Sodium 141
Potassium 3.7
Chloride 105
Carbon Dioxide 27
BUN 15
Creatinine 0.7
Glucose 199 H
Calcium 9.8
Total Bilirubin 1.1
AST 33
ALT 22
Alkaline Phosphatase 39
Vital Signs:
Vital Signs
Temp Pulse Resp BP Pulse Ox
97.6 F 65 18 150/84 93
07/24/24 07:29 07/24/24 07:29 07/24/24 07:29 07/24/24 07:29 07/24/24 07:29
I&O
07/23/24 07/24/24 07/25/24
06:59 06:59 06:59
Intake Total 240 / 240
Balance 240 / 240
--- NOTE | 2024-07-24 08:57 | PTCARENOTE ---
Rec'd pt at handoff. Tele- V-paced HR 60s. Pt aware of NPO status for gene-change today. Pt has no complaints this AM. Plan of care reviewed w/ pt and verbalizes understanding. Currently in bed; call danna w/in reach.
[2024-07-24 11:09] LABS: Glucose - Point of Care 177 mg/dl (70-99)
--- NOTE | 2024-07-24 13:48 | CM ---
Reviewed chart. Met with . and . Shwetha to review discharge plans. She states prior to admission she resides with her spouse in a one story home without any steps to enter. She states prior admission she was independent with ambulation and
adls.. She states she does nto have any DME in the home. She states she has a prescription plan and uses [facility]. Medical work-up in progress. The discharge plan is to return home with her spouse when medically stable.
--- NOTE | 2024-07-24 13:53 | PTCARENOTE ---
Addendum entered by Saskia Deleon RN 07/24/24 13:55:
07/24/2024 addendum to Diabetes Education note
Lucía states her previous HbA1c was in 2021 at 7%. I provided education that HbA1c should be obtained every 3 months and goal is to get A1c closer to 7% to reduce risk of complications.
Original Note:
07/24/2024 DIABETES EDUCATION
I met withLucía and her to review diabetes management.
I educated on physiology of T2D, organ damage, managing with medications, monitoring BG, nutrition, activity, sleep and managing stress. I reinforced signs of hyperglycemia, hypoglycemia and hypoglycemia protocol; BS parameters and recommended HbA1c
goals, glucometer and CGM instructions, glucose tracker, medic alert bracelet and outpatient DSME program. Written material provided.
I educated and reviewed using Contour Next glucometer, member acknowledged understanding with a self demonstration of checking BS. Provided her with a Contour Next sample kit.
I educated and demonstrated on insulin injection technique, timing, and storage. Discussed long and short acting insulin; onset/peak/duration, and encouraged Lucía to administer his own injections with RN supervision while admitted. Discussed
normal target glucose ranges and a monitoring schedule 15 minutes before each meal when prescribed Novolog, and preprandial AM and/or bedtime as recommended by MD.
Encouraged patient to follow up with his PCP for post d/c appointment and to monitor medication and blood glucose levels. She called her PCP: Dr. Isabell Serrano and scheduled appointment for , July 26 at 2:15pm. Provided list of
endocrinologists if desired, to contact insurance company to verify in network status. Requested prescription sent to pharmacy for test strips and lancets for back up SMBG. Patient verbalized understanding.
[2024-07-24 16:00] LABS: Glucose - Point of Care 145 mg/dl (70-99)
--- NOTE | 2024-07-24 16:15 | ITS.CL.PACE ---
Sales Representative Publications - Pacemaker Implant
Pacemaker Implant
Procedure Report:
Implantable Dual Chamber Pacemaker Generator Change:
Ms. 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
Indications: AV block
Date of the Procedure: 07/24/2024
Pre-Operative Diagnosis: Complete heart block with end of life pacemaker
Post-Operative Diagnosis: Complete heart block
Procedure Performed: DUAL CHAMBER PACEMAKER GENERATOR CHANGE
Performing Physician:
Ben Aguirre MD
Anesthesia:
See anesthesia records
Detailed Description of the Procedure:
The patient was identified using hospital identification and informed consent obtained for the procedure. The risks were explained including, but not limited to: Bleeding, infection, arrhythmia, stroke, vascular/cardiac/lung puncture, surgery,
pacemaker dependency/device malfunction. All questions were answered.
The patient was brought to the electrophysiology laboratory in stable condition in fasting state. Continuous electrocardiographic and hemodynamic monitoring was initiated.
The initial rhythm was sinus with AV dissociation and RV paced rhythm.
The procedure site was meticulously prepared with surgical scrub and allowed to dry with no pooling. Sterile draping was applied to cover the procedure site. The image intensifier was draped with sterile bag and positioned over the patient.
The right infraclavicular region was prepped and draped in the usual sterile fashion. Local anesthesia was administered subcutaneously using 1% lidocaine / bupivacaine. The incision was made on the PPM cannister. The old PPM generator was accessed
and the adhesions were removed with care to avoid damage to the leads. The PPM capsule was cut to access the generator. The old device was freed from the underlying fascia. It was removed from the body. The Weitlaner retractor was placed in the
incision and used as access to skin for unipolar pacing.
The RA pacing lead was first removed and plugged into the new generator. Then the RV lead was removed and placed in the respective locations in the newer generator.
The old pocket and capsule was modified and the excessive scar was removed. The device was placed in the pouch with leads and placed in the modified pocket. There was excellent sensing, pacing, and impedance from the leads.�Bovie cautery, and
antibiotics were used.
The wound was irrigated thoroughly with antibiotic solution and closed in 3 layers using 2-0, VLOC sutures and two layers of 4-0 Monocryl sutures. Steri-Strips and a bandage were applied externally.�
Procedure End:
The procedure was tolerated well. A pressure bandage was applied to the incision area.
Estimated Blood loss:
5 cc
Fluoro time:
0 min
Specimens Removed:
No cultures and no specimens were obtained. No intraoperative pathology was identified.
Urine output:
None
Packs / Drains/ Tubes:
None
Instrument / Sponge Count Correct:
Yes
Complications of the Procedure:
None
Condition of Patient at Time of Transfer:
Hemodynamically stable with no neurological or vascular compromise.
Device information:�
Generator: [employer]; Model: W1DR01; Serial # [id number]�
����������� Atrial Lead: Medtronic; Model: 5076-45; Serial # [id number]
����������������������� Measured data in the right atrium was sensing of 2.3 mV with an impedance of 418 ohms and threshold of 0.5 V at 0.4ms..
����������� RV Lead: Medtronic; Model: 5076-52; Serial # [id number]
����������������������� Measured data on the RV lead was no eagle R wave sensing; impedance of 532ohms and threshold of 1.0 V at 0.4ms.
Explanted Device:
-��������� PPM Medtronic - Model A2DR01- Serial # [id number]
Implanted on 09/18/2015; explanted on 07/24/24
PROGRAMMING PARAMETERS:�
Drew parameter settings were DDDR (60 - 130 )
�����������
����������� �
Summary:
Successful generator change of dual chamber pacemaker.
Results/Recommendations:
Please provide patient with adequate pain control�
Instructions to be given to patient:�
- Allow 'steri strips' to fall off on their own�
- If you notice any fevers, shortness of breath, lightheadedness, chest pain, or worsening swelling in the wound site, please contact the arrhythmia clinic, contact your assembler dc field yoke, or present to the hospital for evaluation.�
-No driving for at least 24 hours.
Ben Aguirre MD
Electrophysiology
[2024-07-24 17:50] LABS: Glucose - Point of Care 156 mg/dl (70-99)
[2024-07-24] MEDS: LOVENOX 40 MG SC (18:18)
[2024-07-24] MEDS: LIPITOR 20 MG PO (18:19)
[2024-07-24] MEDS: NOVOLOG FLEXPEN 3 UNITS SC (18:19)
[2024-07-24] MEDS: DIOVAN 320 MG PO (18:19)
[2024-07-24] MEDS: NOVOLOG FLEXPEN-LOW RESISTANCE 1 UNITS SC (18:19)
[2024-07-24] MEDS: PROTONIX 40 MG PO (18:19)
--- NOTE | 2024-07-24 21:38 | PTCARENOTE ---
Right chest wall dressing C/D/I. Tele remains Vpaced w/ HR in the 70-90's. (+) murmur. Pt currently in chair and denies any pain or SOB. Sating 93% RA, and lungs clear throughout. Aware of POC, call clay in reach.
[2024-07-24 22:06] LABS: Glucose - Point of Care 250 mg/dl (70-99)
[2024-07-24] MEDS: LANTUS 0.17 UNITS SC (22:12)
[2024-07-25 04:07] VITALS: BP 147/79
[2024-07-25 04:29] VITALS: BMI 41.6
[2024-07-25 04:32] LABS: % Basophils 0.2 % (0-2); % Eosinophils 0.1 % (0-6); % Immature Granulocytes 0.7 % (0-0.5); % Lymphocytes 20.3 % (20.5-51.1); % Monocytes 5.9 % (1.7-9.3); % Neutrophils 72.8 % (42.2-75.2); Absolute Immature Granulocytes 0.1 10^3/uL (0-0.05); Absolute Lymphocytes 1.6 10^3/uL (1.2-3.4); Absolute Monocytes 0.5 10^3/uL (0.1-0.6); Absolute Neutrophils 5.8 10^3/uL (1.4-6.5); Hematocrit 41.6 % (37.0-47.0); Hemoglobin 13.8 g/dL (12.0-16.0); Mean Corp Hgb Conc. 33.2 g/dL (33.0-37.0); Mean Corpuscular Hgb 28.2 pg (27.0-31.0); Mean Corpuscular Volume 85.1 fL (81.0-99.0); Mean Platelet Volume 10.1 fL (7.4-10.4); Nucleated Red Blood Cells % 0 %; Platelet Count 194 10^3/uL (130-400); Red Blood Cell Count 4.89 10^6/uL (4.20-5.40)
[2024-07-25 04:57] LABS: ALT (SGPT) 20 U/L (0-35); AST (SGOT) 26 U/L (14-36); Albumin 4.1 g/dl (3.5-5.0); Alkaline Phosphatase 37 U/L (38-126); Blood Urea Nitrogen 12 mg/dl (7-17); Calcium 9.9 mg/dl (8.4-10.2); Carbon Dioxide 24 mmol/L (22-30); Chloride 107 mmol/L (98-107); Estimated Creatinine Clearance 88 ml/min; Glucose 196 mg/dl (70-99); Magnesium 1.8 mg/dl (1.6-2.3); Potassium 4.1 mmol/L (3.5-5.1); Sodium 139 mmol/L (135-145); Total Bilirubin 0.8 mg/dl (0.2-1.3); Total Protein 7.2 g/dl (6.3-8.2); eGFR > 60.00
[2024-07-25 07:04] VITALS: BP 113/67
--- NOTE | 2024-07-25 07:33 | W.PN.CARDCBS ---
Addendum entered and electronically signed by Hakeem Worrell MD 07/25/24 09:13:
Patient seen and examined
Agree with ABIMAEL Mejia's note and assessment
Agree with ABIMAEL Mejia's plan
Site clean dry and intact
AV pacing on telemetry
Alert and oriented x 3
BMI is noted
JVP 6
2 out of 6 holosystolic systolic ejection murmur
No hematoma or ecchymosis at right sided pacemaker implant site
Impression:
s/p Medtronic DC PPM generator change for battery at end of service 07/24/24
Admitted with PPM at end of battery life and pacemaker dependent 07/20/24
s/p Medtronic PPM 09/18/15
pacemaker dependent for CHBCongenital unicuspid aortic valve stenosis status post bioprosthetic #21 Daniel AVR at [facility] 2015
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
[facility]
Hyperlipidemia
Type 2 diabetes
Morbid obesity
Osteoporosis
Remote former smoker
ECHO 06/27/24: Peak/mean gradient 66/42 mmHg with SHAHNAZ 0.85 cm�
Plan:
- Reiterated compliance with patient for device checks
-Working on rescheduling cardiology consultation, CT scan and cath for severe bioprosthetic AVR stenosis. The Dr. Healy appt was changed to Dr. Kong 07/31/24. CT scheduled for 08/01/24 and cardiac cath 08/03/24.
-Outpatient dose of Toprol XL 25 mg daily was on hold and should be restarted
-Outpatient dose of valsartan 320 mg daily has been continued
-Anticipate d/c to home 07/25/24
Original Note:
Today's Communication / Plan
-
D/C to home today
Impression / Plan
-
PCP: Isabell Serrano
Primary Crown Wheel Assembler: Dr. Hakeem Soria
Impression:
s/p Medtronic DC PPM generator change for battery at end of service 07/24/24
Admitted with PPM at end of battery life and pacemaker dependent 07/20/24
s/p Medtronic PPM 09/18/15
pacemaker dependent for CHB
Congenital unicuspid aortic valve stenosis status post bioprosthetic #21 Daniel AVR at [facility] 2015
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
outpatient TAVR evaluation under way
HTN
Hyperlipidemia
Type 2 diabetes
Morbid obesity
Osteoporosis
Remote former smoker
ECHO 06/27/24: Peak/mean gradient 66/42 mmHg with SHAHNAZ 0.85 cm�
Plan:
-Patient feels well, minimal pain, wants to go home.
-Patient admitted with a Medtronic PPM that was at end of service when checked by primary clutch inspector, Dr. Soria's office, 07/20/24. Patient had also been seen by Dr. Soria 07/12/24 and they noted that her last device check was roughly 2019, patient
says that she had no idea that her PPM required regular checks.
-Working on rescheduling cardiology consultation, CT scan and cath for severe bioprosthetic AVR stenosis. The Dr. Healy appt was changed to Dr. Kong 07/31/24. CT scheduled for 08/01/24 and cardiac cath 08/03/24.
-Outpatient dose of Toprol XL 25 mg daily was on hold and should be restarted
-Outpatient dose of valsartan 320 mg daily has been continued
-Anticipate d/c to home 07/25/24
HPI: Briefly, 68-year-old woman past medical history of TAVR and permanent pacemaker placed for complete heart block following TAVR procedure. She has not been regularly following with a clutch inspector and recently established with Hakeem Soria.
Device interrogation in his office today determined that her pacemaker was at end-of-life and he recommended she proceed to [place] emergency department for evaluation.
Progress Note - Crown Wheel Assembler
Subjective
Date of Service: July 25, 2024
Feels well, no pain
Objective
Labs:
07/25/24 04:23
07/25/24 04:23
Labs
Hgb 13.8 g/dL (12.0-16.0) 07/25/24 04:23
Hct 41.6 % (37.0-47.0) 07/25/24 04:23
Plt Count 194 10^3/uL (130-400) 07/25/24 04:23
Sodium 139 mmol/L (135-145) 07/25/24 04:23
Potassium 4.1 mmol/L (3.5-5.1) 07/25/24 04:23
BUN 12 mg/dl (7-17) 07/25/24 04:23
Creatinine 0.6 mg/dL (0.6-1.0) 07/25/24 04:23
Glucose 196 mg/dl (70-99) H 07/25/24 04:23
Vital Signs and I&O:
Vital Signs
Temp Pulse Resp BP Pulse Ox
97.8 F 83 18 147/79 93
07/25/24 04:07 07/25/24 04:07 07/25/24 04:07 07/25/24 04:07 07/25/24 04:07
Vital Signs
Temp Pulse Resp BP Pulse Ox
97.8 F 83 18 147/79 93
07/25/24 04:07 07/25/24 04:07 07/25/24 04:07 07/25/24 04:07 07/25/24 04:07
Intake & Output
07/23/24 07/24/24 07/25/24 07/26/24
06:59 06:59 06:59 06:59
Intake Total 240 / 240 760 / 760
Balance 240 / 240 760 / 760
Physical Exam
Physical Exam
GEN: NAD. AAOx3
HEENT: EOMI, MMM
LUNGS: RA. No audible wheeze
CV: A sensed V paced on tele. Right ACW implant site without hematoma or ecchymosis
[2024-07-25 07:51] LABS: Glucose - Point of Care 157 mg/dl (70-99)
--- NOTE | 2024-07-25 08:55 | CM ---
Reviewed chart. Met with Mrs. Tadeo to review discharge plans. She states she is feeling well and maybe able to go home soon. Prior to admission she resides with her spouse in a one story home without any steps to enter. Prior to admission she
was independent with ambulation and adls. She does not have any DME in the home. She has a prescription plan and uses [facility]. Medical work-up in progress. The discharge plan is to return honme with her spouse when medically stable.
--- NOTE | 2024-07-25 08:56 | PTCARENOTE ---
Patient seen by Dr. Worrell this morning and is being prepared for discharge today.
[2024-07-25] MEDS: NOVOLOG FLEXPEN-LOW RESISTANCE 1 UNITS SC (09:15)
[2024-07-25] MEDS: NOVOLOG FLEXPEN 3 UNITS SC (09:16)
--- NOTE | 2024-07-25 09:38 | W.PN.HOSP.TC ---
Today's Communication/Plan
-
dc
Assessment / Plan
Assessment / Plan
Physical exam:
General: Comfortable, Conversant and Obese; No Pain, Fever or Chills
HEENT: NormoCephalic, Anicteric, PERRLA and [place] Conjunctivae
Respiratory: Clear; No Wheezes, Rales or Rhonchi
Cardiac: S1/S2, Murmur (3/6 systolic murmur) and Other (Paced rhythm)
GI: Soft, Non Tender, Non Distended, Normal Bowel Sounds
Musculoskeletal: No Edema
Neuro: AO x 3, No Motor Deficits, Nonfocal/grossly intact, Cranial Nerves Intact
Psych: Calm
Medtronic permanent pacemaker end of battery life
#Placed during aortic valve replacement due to unicuspid aortic valve 2015 [facility]-
- Consult electrophysiology patient follows with [facility]ology
- Current TRUCK DESPATCHER paced rhythm on EKG 66 bpm no previous EKGs
- s/p battery change on 07/24/2024
#Cardiac murmur suspect aortic stenosis
#Hx aortic valve replacement due to unicuspid aortic valve 2015 [facility]-
Is due for cardiac cath on 07/25/2024 with [facility] cardiology
#HTN�benign
- hold metoprolol, continue valsartan
#DM2
Patient reported that she follows with primary care doctors at [facility] before starting with Dr. Isabell Serrano. She was never told about her hemoglobin A1c or diabetes management. She is starting newly with Dr. Serrano and looking forward
for further management and care.
Accu-Cheks with SSI, HgbA1c 11
- Stopped metformin. Started insulin Lantus and meal time. Increase Lantus to better control blood glucose. Consult central supply technician supervisor, help appreciated
# Obesity
BMI 41
we discussed that and pt seemed motivated to f/w her PCP to address further options.
#GERD
- Continue Protonix.
#HLD
- Continue Lipitor.
DVT prophylaxis
Subcu Lovenox
Full code
Total discharge time spent to see the patient, examine the patient, review data and lab results, discuss discharge plan with DM educator, patient and nursing staff around 65 minutes
Anticipated Discharge: Today
Subjective/Interval History
-
Date of Service: July 25, 2024
No compalints
Objective Data
-
Labs:
Laboratory Results
07/25/24
04:23
WBC 8.0
Hgb 13.8
Hct 41.6
Plt Count 194
Sodium 139
Potassium 4.1
Chloride 107
Carbon Dioxide 24
BUN 12
Creatinine 0.6
Glucose 196 H
Calcium 9.9
Total Bilirubin 0.8
AST 26
ALT 20
Alkaline Phosphatase 37 L
Vital Signs:
Vital Signs
Temp Pulse Resp BP Pulse Ox
98.7 F 76 18 113/67 94
07/25/24 08:00 07/25/24 07:04 07/25/24 04:07 07/25/24 07:04 07/25/24 08:00
I&O
07/24/24 07/25/24 07/26/24
06:59 06:59 06:59
Intake Total 240 / 240 760 / 760
Balance 240 / 240 760 / 760
[2024-07-25 11:06] VITALS: BP 121/68
--- NOTE | 2024-07-25 11:58 | PTCARENOTE ---
Reviewed discharge instructions and all of her follow up appointments and she states her understanding. Patient is aware of need to check her blood sugars before meals and at bedtime and to stop her metformin. She states she is comfortable with
insulin injection AC with short acting and HS with her long acting. Patient discharged home with her .
--- NOTE | 2024-07-26 06:40 | W.DCSUMMARY ---
Discharge Summary
Discharge Data
Date of Admission: 07/20/24
Date of Discharge: 07/25/24
-
Pending Results: No
Hospital Course
68 years old female was referred to from data processing systems project planner office/Dr. Soria for pacemaker battery change. Her pacemaker was reaching and of its battery life. Patient did not have chest pain. She was evaluated by data processing systems project planner. She underwent Medtronic
DC PPM generator change for battery at end of service on July 24 with no complications. No hematoma or ecchymosis at the right-sided pacemaker implant site. Patient was advised to continue with her medications and follow-up outpatient for further
evaluation of severe prosthetic AV stenosis. Patient was evaluated and followed by asthma educator. Hemoglobin A1c was around 11. Patient was started on insulin. She was counseled regarding management of diabetes and compliance, she verbalized
understanding. Patient remained hemodynamically stable and was discharged in a stable condition.
Discharge Plan
-
Patient Disposition: Home (Routine Discharge)
Discharge Diagnosis/Procedures: PPM at end of battery life and pacemaker dependent 07/20/24 s/p generator change
Diabetes, you are seen by asthma educator. He was started on long acting insulin and short acting insulin before meals. Monitor your blood glucose as instructed and follow-up with your primary care doctor.
Diet: As tolerated and Diabetic, Carb Controlled
Driving Restrictions: No driving for 24 hours
Bathing Restrictions: OK to Shower
Others Tests: -
Stand Alone Forms: DC Inst - Implanted Device
Referrals:
[facility] [Provider Group] - 08/02/24 3:00 pm
Referral Note: Incision check appointment
Isabell Serrano DO [Family Provider, Internal Medicine] - in one to two weeks
Dale Kong MD [Active, Cardiology] - 07/31/24 11:20 am
Referral Note: You have an appt to see Dr. Kong at [facility] on 07/31/24 at 11:20 to discuss TAVR. Your CT scan has been rescheduled for 08/01/24 at 11:15 AM, but arrive between 11-11:15 to register. You are then scheduled for cardiac cath
on 08/03/24 and the hospital will call you the night before with the arrival time.
Hakeem Soria MD [Active, Internal Medicine] - in two to four weeks
Prescriptions:
New
(DME) Contour Next Test Strips Strip
Qty: 100 0RF
Rx Instructions:
Pt testing 4 times a day
insulin glargine [Basaglar KwikPen U-100 Insulin] 100 unit/mL (3 mL) Insulin Pen
17 unit SC HS Qty: 5 0RF
(DME) lancets [Color Lancets] 21 gauge Misc
Qty: 100 0RF
Rx Instructions:
Pt testing 4 times a day
insulin lispro [Humalog KwikPen Insulin] 100 unit/mL Insulin Pen
3 unit SC AC Qty: 5 0RF
(DME) pen needle, diabetic [Seda 2nd Gen Pen Needle] 32 gauge x 5/32' Needle
Qty: 1,200 0RF
Rx Instructions:
As Directed
(DME) pen needle, diabetic [Seda 2nd Gen Pen Needle] 32 gauge x 5/32' needle
See Rx Instructions .Route Qty: 100 0RF
Rx Instructions:
As directed
Continued
simvastatin 40 mg tablet
40 mg PO QPM
valsartan 320 mg tablet
320 mg PO QPM
omeprazole 20 mg capsule,delayed release(DR/EC)
20 mg PO QPM
metoprolol succinate 25 mg tablet extended release 24 hr
25 mg PO QPM
Discontinued
metformin 500 mg Tablet Extended Release 24 Hr
500 mg PO QPM
Discharge Orders:
Discharge Patient (As Directed); Ordered 07/25/24
Ordered By: Ed Zelaya
Care Plan Goals
Care Plan Goals:
Problem: Readiness for enhanced knowledge related to diagnosis and treatment plan
Goal: Understand your diagnosis and treatment plan needs, including medications if applicable.
Instructions: Know your diagnosis, underlying causes and treatment plan options, including medications if applicable. Consult with your health care team to learn about your diagnosis and treatment plan, including medications if applicable.
Discharge Date and Time
Discharge Date/Time: 07/25/24 11:45
Print Language: ROMANSH
== END 2024-07-25 11:45 | disposition home or self-care (01) | DRG 259 ==
LOC: IVU 17:47
PROVIDERS: Clinical Nurse Specialist Family Health; Internal Medicine Cardiovascular Disease; Physician Assistant; ADMITTING PHYSICIAN Internal Medicine; ATTENDING PHYSICIAN Internal Medicine; CONSULT PHYSICIAN Internal Medicine Cardiovascular Disease; EMERGENCY PHYSICIAN Emergency Medicine; FAMILY PHYSICIAN Internal Medicine
PROC: 0JPT0PZ Removal of Cardiac Rhythm Related Device from Trunk Subcutaneous Tissue and Fascia, Open Approach (ICD-10-PCS; 2024-07-24)
PROC: 0JH606Z Insertion of Pacemaker, Dual Chamber into Chest Subcutaneous Tissue and Fascia, Open Approach (ICD-10-PCS; 2024-07-24)
DX: T82.897A Other specified complication of cardiac prosthetic devices, implants and grafts, initial encounter (principal); I44.2 Atrioventricular block, complete; Z68.41 Body mass index [BMI] 40.0-44.9, adult; Y71.2 Prosthetic and other implants, materials and accessory cardiovascular devices associated with adverse incidents; E78.5 Hyperlipidemia, unspecified; E11.9 Type 2 diabetes mellitus without complications; E66.01 Morbid (severe) obesity due to excess calories; M81.0 Age-related osteoporosis without current pathological fracture; Z87.891 Personal history of nicotine dependence; I10 Essential (primary) hypertension; I25.10 Atherosclerotic heart disease of native coronary artery without angina pectoris; K21.9 Gastro-esophageal reflux disease without esophagitis; Z79.84 Long term (current) use of oral hypoglycemic drugs; Z82.49 Family history of ischemic heart disease and other diseases of the circulatory system; Z87.442 Personal history of urinary calculi; Z88.2 Allergy status to sulfonamides; Z95.0 Presence of cardiac pacemaker; Z95.2 Presence of prosthetic heart valve
CPT/HCPCS: 33228; 71046; 80053; 80061; 82962; 83036; 83735; 84484; 85025; 93005; 97162; 99285; C1785

== ENCOUNTER → 2024-08-01 10:22 | Outpatient (REF) | payer OTHER, SELFPAY | LOC: RAD 10:22 | PROVIDERS: ATTENDING PHYSICIAN Thoracic Surgery (Cardiothoracic Vascular Surgery); FAMILY PHYSICIAN Internal Medicine | DX: Z01.810 Encounter for preprocedural cardiovascular examination (principal) | CPT/HCPCS: 74174; 75572; Q9967 ==

== ENCOUNTER 2024-08-06 06:23 | Day surgery (SDC) | payer OTHER, SELFPAY ==
[2024-08-06] VITALS (11 sets, daily range): BP systolic 92–154; BP diastolic 51–84; BMI 42.2
[2024-08-06] MEDS: LOW STRENGTH ASPIRIN 324 MG PO (07:19)
[2024-08-06] MEDS: NSS 275 ML IV (07:20)
[2024-08-06 07:24] LABS: Glucose - Point of Care 149 mg/dl (70-99)
--- NOTE | 2024-08-06 07:51 | ITS.CL.CATH ---
[facility] - Catheterization
Cardiac Catheterization
Procedure Report:
LEFT HEART CATHETERIZATION
Date of Procedure: 2024
Referring: Hakeem Soria MD
PROCEDURES:
1. Left heart catheterization, coronary angiogram.
2. Moderate sedation.
INDICATION: Pre-assessment for valve in valve TAVR
ACCESS: Right radial artery, 6Fr. sheath, under US guidance.
HEMODYNAMICS : (mmHg)
AO (s/d) : 141/84
LVEDP : 23
Mean gradient across the aortic valve is 38mmHg.
CORONARY FINDINGS
Dominance: Left
Left Main Trunk (LMT): Large caliber vessel that gives rise to the LAD and LCx branches and is free of angiographic disease.
Left Anterior Descending Artery (LAD): Large caliber vessel that gives off 2 major diagonal branches as it courses along the anterior inter-ventricular groove before wrapping around the cardiac apex. The LAD and its branches are free of
angiographic disease.
Left Circumflex Artery (LCx): Large caliber dominant vessel that gives off 2 major obtuse marginal (OM) branches as it courses along the atrio-ventricular (AV) groove. The LCx and its branches are free of angiographic disease.
Right Coronary Artery (RCA): Small caliber nondominant vessel without obstructive coronary artery disease.
SEDATION: 27 minutes of procedural sedation was utilized. IV Midazolam and IV Fentanyl were administered. An independent medical administrative was present to assist with and help manage the patient's level of consciousness and physiologic status.
RADIATION SUMMARY: Fluoro Time (min): 2.9, Dose (mGy): 210.68, DAP (Gy.cm2) : 13.8
Closure Device: There were no immediate intra-procedural complications. The sheath was pulled in the laborer road and a vascular-band applied to the right wrist for radial artery hemostasis using the patent hemostasis technique.
CONCLUSIONS
1. Left dominant coronary circulation. No obstructive coronary artery disease.
2. Invasive transaortic gradient of 38 mmHg.
3. Elevated LVEDP at 23 mmHg
RECOMMENDATIONS
1. Wean radial band per protocol. Monitor right hand perfusion and for bleeding from the radial site following removal of the vascular-band following trans-radial access.
2. Continue aggressive medical therapy and risk factor modification for secondary CAD prevention.
3. Hydrate with normal saline to mitigate the risk of contrast-induced acute kidney injury.
4. Review TAVR protocol CT and discuss at the next actual meeting.
Copy to: Hakeem Soria MD
Layne Healy MD, FAC, [facility]
[2024-08-06] MEDS: NSS 1000 IV (08:40)
[2024-08-06 09:36] LABS: Glucose - Point of Care 149 mg/dl (70-99)
[2024-08-06] MEDS: NOVOLOG vial 0.04 UNITS SC (10:21)
== END 2024-08-06 12:10 | disposition home or self-care (01) ==
LOC: CATH 06:23
PROVIDERS: ATTENDING PHYSICIAN Internal Medicine Interventional Cardiology; FAMILY PHYSICIAN Internal Medicine; OTHER PHYSICIAN Internal Medicine Cardiovascular Disease
DX: R06.09 Other forms of dyspnea (principal); I10 Essential (primary) hypertension; I44.39 Other atrioventricular block; Z98.0 Intestinal bypass and anastomosis status; E78.5 Hyperlipidemia, unspecified; E66.01 Morbid (severe) obesity due to excess calories; Z87.891 Personal history of nicotine dependence; E11.9 Type 2 diabetes mellitus without complications; Z95.2 Presence of prosthetic heart valve; Z68.41 Body mass index [BMI] 40.0-44.9, adult
CPT/HCPCS: 99152; 99153; 82962; 93458; C1894; Q9967

== ENCOUNTER 2024-09-20 09:00 | Inpatient (IN) | payer OTHER, SELFPAY ==
--- NOTE | 2024-09-12 08:19 | HPS.HSE ---
Family Physician
-
Family Physician: Isabell Serrano, DO
Chief Complaint
-
DALTON
PreTAVR evaluation
History of Present Illness
Ms. Lucía Tadeo is an extremely pleasant 68-year-old female with past medical history significant for aortic valve replacement, aortic stenosis, permanent pacemaker, hypertension, hyperlipidemia, type 2 diabetes, nephrolithiasis.� She underwent
aortic valve replacement (#21 Daniel tissue valve) with Dr. Owen Alston at [facility] on 09/26 2015 and subsequent permanent pacemaker implantation.� She was recently seen by her PCP Dr. Isabell Serrano, who ordered her echocardiogram.
Of note, Mrs. Tadeo was unsure when she had her last echocardiogram or had her pacemaker checked and has not been seen by cardiology. Her most recent transthoracic echocardiogram performed on 06/27/24 demonstrates normal LV size and function, EF
60%, there is paradoxical septal motion and remaining wall motion is normal, grade 2 diastolic dysfunction, currently dilated left atrium, bioprosthetic aortic valve is in place and well-seated, peak gradient across the aortic valve is 66 mmHg, mean
gradient 42 mmHg with calculated valve area of 0.85, findings consistent with severe aortic stenosis. Reviewed Ms. Tadeo with the heart team and she was recommended for CHANELL utilizing a 23 mm FX+ via right transfemoral access.
Assessed patient in preadmission testing and confirmed medication list. 81 mg aspirin will be initiated 09/12/2024 and she will continue including the morning of TAVR. Patient will arrive to the [email or web address] At[facility] at 0930. Reviewed the risks of the
procedure as discussed in consult with Dr. Ma including Stroke, and vascular injury. Allowed for and answered questions to the best of my ability.
Medical History
Past Medical History
Past Medical History: Reports HTN, NIDDM and Valvular Disease (aortic stenosis of bioprosthetic AVR)
Additional Past Medical History:
hyperlipidemia, morbid obesity, osteoporosis, kidney stones
Past Surgical History: Reports Cardiac (PPM, AVR), Cholecystectomy, Orthopedic ((R) knee arthroscopy) and Urological (renal lithotripsy)
Social History
Tobacco: Former Smoker
Alcohol: Occasional
Drug: None
Personal:
Living: With Family
Employment: Retired
Family History
Family History: CAD, Diabetes and Hypertension
Allergies / Home Medications
Allergies reflects when Allergies were last updated in [employer]..
adhesive tape
Sulfa
Home Medications with original date entered in [employer].
amLODIPine Besylate 10 MG Tablet 1 tablet Orally Once a day
metFORMIN HCl ER 500 MG Tablet Extended Release 24 Hour 1 tablet with evening meal Orally Once a day
Metoprolol Succinate ER 25 MG Tablet Extended Release 24 Hour 1 tablet Orally Once a day
Omeprazole 20 MG Capsule Delayed Release 1 capsule 1/2 to 1 hour before morning meal Orally Once a day
Simvastatin 40 MG Tablet 1 tablet in the evening Orally Once a day
Valsartan 320 MG Tablet 1 tablet Orally Once a day
Allergy/Medication List:
adhesive tape
Sulfa
Review of Systems
-
History Source: Patient
A 12 point ROS was completed and negative except as noted: Yes
Constitutional: Reports Fatigue
Respiratory: Reports Other (DALTON)
Physical Exam
Physical Exam
General: Well Developed, Well Nourished, No Apparent Distress and Obese
HEENT: NormoCephalic
Respiratory: Clear
Cardiac: Murmur (III/ AKHIL)
Breast: Deferred by me
GI: Soft and Non Tender
Rectal: Deferred by Provider
Genito-urinary: Deferred by me
Musculoskeletal: No Edema
Skin: Warm and Dry
Neuro: Awake, Alert, Oriented and AO x 3
Psych: Calm
Data Reviewed
-
CT Scan: Report Reviewed by me and Discussed with Physician (reviewed TAVR CT scan with the heart team)
Medical Tests (Nuc Med, Echo, EKG etc): Report Reviewed by me and Discussed with Physician (Reviewed echocardiogram and cardiac catheterization with the heart team)
Lab Data: Labs Reviewed by me
Old Records: Reviewed
Impression/Plan
-
IMPRESSION/PLAN:
Aortic stenosis of bioprosthetic valve
Initiate 81 mg aspirin and continue post TAVR
POD#1/#30 Echocardiogram
Cardiac rehab consult
Labs
-
Labs:
WBC 7.0 10^3/uL (4.8-10.8) 09/12/24 08:31
RBC 5.03 10^6/uL (4.20-5.40) 09/12/24 08:31
Hgb 14.1 g/dL (12.0-16.0) 09/12/24 08:31
Hct 43.4 % (37.0-47.0) 09/12/24 08:31
Plt Count 217 10^3/uL (130-400) 09/12/24 08:31
Sodium 140 mmol/L (135-145) 09/12/24 08:31
Potassium 4.2 mmol/L (3.5-5.1) 09/12/24 08:31
Chloride 108 mmol/L (98-107) H 09/12/24 08:31
Carbon Dioxide 26 mmol/L (22-30) 09/12/24 08:31
BUN 19 mg/dl (7-17) H 09/12/24 08:31
Creatinine 0.6 mg/dL (0.6-1.0) 09/12/24 08:31
eGFR > 60.00 09/12/24 08:31
Glucose 140 mg/dl (70-99) H 09/12/24 08:31
Calcium 9.5 mg/dl (8.4-10.2) 09/12/24 08:31
Wlb-A-Bgasgbzpsdj Pept 248 pg/ml 09/12/24 08:31
Albumin 4.2 g/dl (3.5-5.0) 09/12/24 08:31
[2024-09-12 08:36] VITALS: BMI 42.2
[2024-09-12 08:58] LABS: Hematocrit 43.4 % (37.0-47.0); Hemoglobin 14.1 g/dL (12.0-16.0); Mean Corp Hgb Conc. 32.5 g/dL (33.0-37.0); Mean Corpuscular Volume 86.3 fL (81.0-99.0); Nucleated Red Blood Cells % 0 %; Platelet Count 217 10^3/uL (130-400); Red Cell Dist. Width 13.2 % (11.5-14.5)
[2024-09-12 09:07] LABS: INR 0.93; PT 13.0 Sec (11.4-14.6)
[2024-09-12 09:11] LABS: ALT (SGPT) 15 U/L (0-35); AST (SGOT) 23 U/L (14-36); Albumin 4.2 g/dl (3.5-5.0); Alkaline Phosphatase 39 U/L (38-126); Blood Urea Nitrogen 19 mg/dl (7-17); Calcium 9.5 mg/dl (8.4-10.2); Carbon Dioxide 26 mmol/L (22-30); Chloride 108 mmol/L (98-107); Estimated Creatinine Clearance 85 ml/min; Glucose 140 mg/dl (70-99); Potassium 4.2 mmol/L (3.5-5.1); Sodium 140 mmol/L (135-145); Total Protein 7.2 g/dl (6.3-8.2); eGFR > 60.00
[2024-09-12 09:17] LABS: Urine Character Clear (Clear)
[2024-09-12 09:57] LABS: Urine Squamous Cell 16-20 /LPF (Few)
[2024-09-12 09:58] LABS: Urine Urothelial Cell 21-25 /LPF (FEW)
[2024-09-12 10:01] LABS: Urine Red Blood Cell 0-2 /HPF (0-2)
--- NOTE | 2024-09-12 10:04 | CM ---
Chart reviewed. Met with the patient and her in PAT. Reviewed preoperative and postoperative instructions and restrictions, along with showering instructions. Gave patient 2 soaps. Patient is agreeable to a home visit by CT Transitional
RN. Patient is independent of ADLS, lives with her in a 1 STH, 0 KATHRINE, 0 DME. Plan is for the patient to return home with CT Transitional RN.
[2024-09-12 10:08] LABS: Glycohemoglobin (HgbA1c) 8.0 % (4.0-5.6)
[2024-09-20] VITALS (16 sets, daily range): BP systolic 128–164; BP diastolic 58–73; BMI 41.2
[2024-09-20 09:44] LABS: Glucose - Point of Care 132 mg/dl (70-99)
--- NOTE | 2024-09-20 10:58 | CM ---
Patient in OR today for planned TAVR.
Reviewed initial assessment. Pt. resides w/ spouse in a private, 1 STH, 0 KATHRINE. Functionally, patient is indep. w/ ADLs, mobility without the use of any assisted device.
Antic. DC plan is for home w/ CT Transitional Care RN.
Cm to follow.
[2024-09-20] MEDS: ANCEF 10 IV ×2 (13:18)
[2024-09-20 14:35] LABS: B.E. - POC -2.2 mmol/L; Glucose - POC 193 mg/dl (70-99); HCO3 - POC 23 mmol/L (21-28); Hematocrit - POC 40 % PCV (37-47); Hemodilution- POC Yes; Hemoglobin Calculated - POC 13.5; Ionized Calcium - POC 1.17 mmol/L (1.15-1.33); Lactate - POC 0.80 mmol/L (0.36-0.75); O2 Saturation %Calculated-POC 99.5 % (94-98); PCO2 - POC 41 mmHg (35-48); PO2 - POC 178 mmHg (83-108); Potassium - POC 3.7 mmol/L (3.5-5.1); Sodium - POC 139 mmol/L (136-145); Specimen Type - POC Arterial; pH - POC 7.36 (7.35-7.45)
[2024-09-20 15:09] LABS: ACT-LR - POC 289 Seconds (116-155)
[2024-09-20 15:25] LABS: ACT-LR - POC 276 Seconds (116-155)
[2024-09-20 15:25] LABS: ACT-LR - POC 305 Seconds (116-155)
--- NOTE | 2024-09-20 15:31 | W.CVOR.SURPR ---
CVOR Surgeon Immed Pre Op
-
I have examined this patient prior to performance of the scheduled procedure.
The patient's condition is unchanged from the time of the dictated/written History and
Physical and the patient is able to undergo the scheduled procedure.
--- NOTE | 2024-09-20 15:31 | W.IMMPOSTOP ---
Addendum entered and electronically signed by Owen Ma MD 09/20/24 16:44:
[id number]
Original Note:
Surgical Immed Post Op Note
-
STRUCTURAL HEART PROCEDURE NOTE:
Preoperative Dx:
S/P prior AVR (#21 Daniel) in 2016
Severe prosthetic valve AV (66/42; SHAHNAZ 0.85)
PPM
HTN/HLD
Osteoporosis
Nephrolithiasis
DM II
Postoperative Dx:
Same
Procedures:
1) L CFV access w/ U/S and fluoroscopic guidance, long 6Fr sheath placement
2) L SHIFT MGR access w/ micropuncture technique, 4Fr micropuncture sheath secured in position for arterial pressure monitoring
3) R SHIFT MGR access w/ tactile, U/S, and fluoroscopic guidance, micropuncture technique, limited angiography, 8Fr dilator placement
4) Placement of perclose sutures x 2 into R SHIFT MGR, placement of 8Fr sheath
5) Placement of temporary pacing wire w/ threshold testing
6) Placement of 14Fr COOK sheath
7) Wire purchase across stenotic AVR (AL-1, soft-tip straight, table-J; JR-4, soft-tip straight, J-wire, fany 6Fr pigtail)
8) LVEDP and AV gradient assessments; LVEDP 25mmHg, gmvj-rn-tiwv 54mmHg
9) Fluoroscopic inspection of Evolut Fx+
10) Lunderquist wire purchase across stenotic AVR
11) R TF TAVR w/ placement of 23mm Evolut FX+ (1 recapture reposition); SUSAN assessment
12) Removal of smhqk-dkuqislq-gsmhbk/in-line sheath w/ replacement of COOK sheath
13) Replacement of fany 6Fr pigtail catheter - AV gradients approximately 24mmHg
14) Post-TAVR BAV w/ 20mm True w/ good expansion
15) Replacement of fany 6Fr pigtail catheter - AV gradient down to 10mmHg; SUSAN w/ similar gradients, no PVL/AI
16) Removal of 14Fr COOK sheath w/ R SHIFT MGR mgmt w/ perclose sutures x 2; manual pressure (protamine)
17) Removal of L SHIFT MGR 4Fr sheath w/ mgmt w/ manual pressure
18) Removal of temporary pacing wire, 6Fr long L CFV sheath; manual pressure
Molder Sweep:
Dr. Layne Healy
Cardiac Surgeon:
Dr. Owen Ma
Anesthesia:
Trip VICKERS M.D.
Implants:
Medtronic, 23mm Evolut FX+ [id number]
Perclose x 2 to R SHIFT MGR
Cath Data:
Start: 1345hrs, Deploy: 1437hrs, End: 1505hrs
FT: 17.9min, mGy: 411, DAP: 33.7, Contrast: 15mL
Post-SUSAN: mean gradient 10mmHg, no AI/PVL
Complications:
None
Condition:
Stable/guarded to CVICU
[2024-09-20] MEDS: LEVOPHED 250 IV (15:44)
[2024-09-20 16:02] LABS: Glucose - Point of Care 188 mg/dl (70-99)
--- NOTE | 2024-09-20 16:02 | ITS.CL.TAVR ---
Criminal Justice Program Director - TAVR Report
TAVR PRocedure
Procedure Report:
TRANSCATHETER AORTIC VALVE REPLACEMENT
Date of Procedure: September 20, 2024
Referring: Hakeem Soria MD
Operators: Drs. Layne Doherty and Owen Ma
PROCEDURE PERFORMED:
1. Successful placement of 23 mm Medtronic Evolut FX+ valve via right femoral artery.
ACCESS:
1. Right common femoral artery, 14 Nigerien sheath, under ultrasound guidance using a micropuncture kit.
2. Left common femoral vein, 6 Nigerien sheath, under ultrasound guidance using a micropuncture kit.
3. Right common femoral artery, 4 Nigerien sheath, under ultrasound guidance using a micropuncture kit.
Ultrasound was utilized for vascular access. The right and left femoral artery and vein were visualized under ultrasound, and the vessels was patent and arteries were pulsatile. An image was stored permanently in the patient's medical record.
Under direct ultrasound guidance, a 14 Nigerien sheaths was inserted into the right common femoral artery, and an 4 Nigerien sheath in the left common femoral artery and 6Fr sheath in LCFV respectively, using a micropuncture kit through a modified
Seldinger technique.
PREPROCEDURE NYHA CLASS: II
DESCRIPTION OF PROCEDURE: The patient was referred for assessment of severe symptomatic aortic stenosis and following a comprehensive evaluation it was felt that transcatheter aortic valve replacement (TAVR) would be the most appropriate treatment.
Informed consent was obtained prior to the procedure. A 'time-out' was called and the procedural plan was verbally confirmed by anesthesia, surgery, perfusion, and lab aide staff.
Arterial and venous access were obtained in the left common femoral artery and vein using a micropuncture technique and 4 and 6 fr. sheaths were inserted, respectively. A 5 Fr. transvenous pacing wire was then advanced to the right ventricle where
excellent pacing thresholds were obtained.
Given patient has a known 21 mm CE Magna Ease 3300 VICKY. The cusp overlap view was SALTER 10/caudal 20. The coplanar view is SWEDISH 13
Ultrasound guidance was then used to obtain arterial access in the right common femoral artery and a 6 Fr. sheath was inserted. Angiography was performed and the arteriotomy site appeared appropriate for preclosure with two Perclose devices. An 8
Nigerien sheath was then inserted back into the common femoral artery over a J-tipped guidewire. An AL1 catheter was then advanced to the proximal descending aorta. A Double-curve Lunderquist 0.035' wire was placed in the proximal descending
thoracic aorta to facilitate delivery of a 14 Fr / 13 cm Cook sheath.
An AL1 catheter was then positioned just above the aortic valve and a 0.035' Straight tip wire probed the aortic valve and crossed the stenotic leaflets. The AL-1 did not offer a favorable angle. We eventually crossed with a JR4 diagnostic
catheter and a straight tip wire. The JR4 was then advanced to the mid left ventricle. A long J-wire was advanced to the left ventricular apex and was followed to the apex with an angled pig-tail catheter. The Double Curve Lunderquist was then
positioned in the left ventricular apex. The Evolut FX+ stent was inspected under fluoroscopy/cine while rotating the stent delivery system. The stent paddles were within the pocket and no significant crown overlap noted.
The 16 Fr. sheath was exchanged for the Evolut InLine delivery system. The 23 mm Evolut FX+ stent was advanced across the stenotic leaflets. The Evolut FX+ valve was slowly deployed in the leaflet overlap view until the stent flared achieving
contact at 2-3 mm below the noncoronary cusp. The stent continued to flared achieving contact with the left coronary cusp. The image intensifier was rotated to an SWEDISH position to remove parallax from the valve with continued valve deployment with
controlled pacing. We transitioned quickly through the rumble strips on the InLine delivery sheath until the marker band was positioned just below the paddle attachment. Angiography was performed. The valve structure was released from the
delivery system when we were happy with the valve position. Post deployment angiography had no aortic insufficiency and a mean invasive gradient of 24 mmHg. Attention was made to proceed with postdilatation given the valve appeared constrained
especially over the noncoronary cusp. Balloon post-dilation was performed with rapid pacing using an 20 mm TRUE balloon with post BAV invasive mean gradient down to 11 mmHg with no aortic insufficiency noted on SUSAN. Decision at this point was made
to not further postdilated or fracture her original SAVR.
The Evolut FX+ delivery system capsule was reunited to the body of the delivery system. The Evolut InLine sheath was removed and the Perclose knots were advanced to the arteriotomy site resulting in excellent hemostasis.
Fluoro Time (min): 17.9 Dose (mGy): 411 DAP (Gy.cm2) : 33.7
CONCLUSIONS:
1. Severe symptomatic aortic stenosis. Successful deployment of a 23mm Evolut FX+ valve within her old 25mm Magna Ease VICKY with no aortic insufficiency post procedure.
2. Successful arteriotomy closure with 2 Perclose devices.
Layne Healy MD, FACC, [facility]
Copy to: Hakeem Soria
[2024-09-20] MEDS: NOVOLOG FLEXPEN-MODERATE RESISTANCE 1 UNITS SC (16:30)
[2024-09-20] MEDS: NOVOLOG FLEXPEN-MODERATE RESISTANCE SC (16:33)
--- NOTE | 2024-09-20 17:55 | PTCARENOTE ---
Rec'd pt from medical laboratory assistant. Tele- SR w/ occ. V- pacing. HR 60s. B/l groins are c/d/i. Neuro WNL. Pt sating 92% on 6L O2 NC. Pt has no complaints discomfort/pain at this time. Activity restrictions reviewed w/ pt and verbalizes understanding. Currently
in bed; call danna w/in reach.
[2024-09-20] MEDS: FLUSH (NSS) 1 FLUSH IV (20:10)
[2024-09-20] MEDS: ANCEF 5 IV (20:10)
[2024-09-20 20:58] LABS: Glucose - Point of Care 158 mg/dl (70-99)
[2024-09-20] MEDS: PROTONIX 40 MG PO (22:06)
[2024-09-20] MEDS: TOPROL XL 25 MG PO (22:07)
[2024-09-20] MEDS: DIOVAN 320 MG PO (22:07)
--- NOTE | 2024-09-21 00:53 | W.PN.CT ---
Today's Communication / Plan
-
-pod #1
-no issues overnight
-nsr 60s-70s with v-pacing overnight
-Echo today
-current meds (ASA, Lipitor, Toprol 25 qd, Norvasc, Diovan, Protonix)
-encourage IS, ambulate
-possible d/c
Assessment / Plan
-
- Severe symptomatic - s/p R TF TAVR w/ placement of 23mm Evolut FX+ (1 recapture reposition); Post-TAVR BAV w/ 20mm True w/ good expansion on 09/20/24, pod #1
- Post-SUSAN: mean gradient 10mmHg, no AI/PVL
- Chronic diastolic CHF, LVEDP 25mmHg
- S/P prior AVR (#21 Daniel) in 2016 with Severe prosthetic valve stenosis (66/42; SHAHNAZ 0.85)
- Biotronik PPM
- HTN/HLD
- Osteoporosis
- Nephrolithiasis, s/p lithotripsy
- DM II
- Class 3 obesity (BMI 41)
- Cholecystectomy
Discussed patient care with: Nursing and Care Team
Subjective
-
Date of Service: September 21, 2024
Objective Data
-
PT 13.0 Sec (11.4-14.6) 09/12/24 08:31
INR 0.93 09/12/24 08:31
Vital Signs
Vital Signs
Temp Pulse Resp BP Pulse Ox
97.7 F 69 20 133/70 93
09/20/24 22:05 09/20/24 22:45 09/20/24 22:05 09/20/24 22:07 09/20/24 22:05
CT Intake/Output/Weight
09/20/24 09/20/24 09/21/24
06:59 18:59 06:59
Intake Total 1400 / 1400
Output Total 250 / 250
Balance 1400 / 1150 -250 / 1150
SaO2: 93
Physical Exam
-
General: Awake and AOx3
Cardiovascular: Regular rate & rhythm and Murmur (/6 systolic @ lsb)
Respiratory: Clear and Decreased Breath Sounds
Incision: Other (groins are soft, nontender, no hematoma b/l)
Extremities: Other (trace edema b/l)
Abdomen: soft, nontender, + bowel sounds
Data Reviewed
-
Lab Results: Results Reviewed
Medications: Active Meds Reviewed
Chest X-Ray: Report Reviewed and Image Reviewed
ECG: Report Reviewed and Image Reviewed
--- NOTE | 2024-09-21 01:36 | PTCARENOTE ---
Received pt @ change of shift. AAOx3, VSS. Pt on bedrest until 19:30, verbalizes understanding. Bilateral groin sites clean, dry, and intact. Denies pain @ sites. No swelling, ecchymosis, or firmness at sites. Weaned off NC-- stats 92-93% on room
air-- no SOB, speaking comfortably. Discussed plan of care and expected ambulation time. Pt verbalizes understanding. Call clay within reach.
[2024-09-21 01:44] VITALS: BP 109/38; BP 109/83
[2024-09-21 01:45] VITALS: BMI 41.8
[2024-09-21 02:24] LABS: Hematocrit 41.1 % (37.0-47.0); Hemoglobin 13.6 g/dL (12.0-16.0); Mean Corp Hgb Conc. 33.1 g/dL (33.0-37.0); Mean Corpuscular Volume 84.2 fL (81.0-99.0); Platelet Count 239 10^3/uL (130-400); Red Cell Dist. Width 13.1 % (11.5-14.5)
[2024-09-21 02:47] LABS: Blood Urea Nitrogen 17 mg/dl (7-17); Calcium 9.3 mg/dl (8.4-10.2); Carbon Dioxide 23 mmol/L (22-30); Chloride 105 mmol/L (98-107); Estimated Creatinine Clearance 85 ml/min; Glucose 171 mg/dl (70-99); Potassium 4.5 mmol/L (3.5-5.1); Sodium 138 mmol/L (135-145); eGFR > 60.00
[2024-09-21 08:14] VITALS: BP 128/52
[2024-09-21 09:14] LABS: Glucose - Point of Care 133 mg/dl (70-99)
[2024-09-21] MEDS: NOVOLOG FLEXPEN-MODERATE RESISTANCE SC ×2 (09:14→12:37)
[2024-09-21] MEDS: ASPIR LOW (ENTERIC COATED) 81 MG PO (09:19)
[2024-09-21] MEDS: NORVASC 10 MG PO (09:20)
[2024-09-21 09:22] VITALS: BP 110/73
--- NOTE | 2024-09-21 09:32 | W.PN.CARDCBS ---
Addendum entered and electronically signed by Layne Healy MD 09/21/24 11:30:
I saw and examined the patient.
The Educational Program Assistant's note was reviewed and I agree with the note.
Comment: Patient is doing well overnight with no significant complaints. She has been out of bed ambulating without difficulty. No issues at the bilateral groin sites.
Vital signs and labwork reviewed. On exam patient is well-appearing, out of bed into a chair, regular rate, normal S1 and S2, no murmurs, rubs or gallops, abdomen is obese, soft, nontender with active bowel sounds, bilateral groin sites with
dressing in place which is clean, dry and intact without evidence of hematoma or bruit, warm extremities without significant edema.
Recommendations
1. Patient is status post valve in valve TAVR with a 23 mm Medtronic evolut FX plus 2 her bioprosthetic 21 mm Daniel AVR done in 2015 for her congenital unicuspid aortic valve stenosis.
2. Patient has a Medtronic pacemaker already for complete heart block history from before with generator change completed in June 2024.
3. Continue daily baby aspirin and ongoing risk factor modification.
4. Postop day 1 echocardiogram completed this morning with LV systolic function preserved and no pericardial effusion. Mean transaortic gradient this morning is increased to 23 mmHg from 11 mmHg intra procedurally when compared to intraprocedural
SUSAN.
Overall stable for discharge later today once patient ambulates further.
Layne Healy MD, [facility], [facility]
Original Note:
Today's Communication / Plan
-
Await echo results
possible discharge later today.
Impression / Plan
-
PCP: Isabell Serrano
Primary Solar Manufacturer'S Representative: Dr. Soria
Impression:
Congenital unicuspid aortic valve stenosis
s/p bioprosthetic #21 Daniel AVR at [facility] 2015
s/p R TF TAVR 09/20/2024
s/p Medtronic PPM 09/18/2015
pacemaker dependent for CHB
s/p generator change 07/24/2024
HTN
Hyperlipidemia
Type 2 diabetes
Morbid obesity
Osteoporosis
Remote former smoker
Echo 06/27/2024: Peak/mean gradient 66/42 mmHg with SHAHNAZ 0.85 cm2
Echo 09/21/2024: Study completed, report pending
Plan:
-Known severe prosthetic aortic valve stenosis. Underwent successful TAVR 09/20/2024. POD #1
-Seen this AM. Feeling well other than sore/scratchy throat.
-No issues overnight. Denies chest pain, palpitations.
-Echo completed this AM. Await official report.
-BP and HR stable. Continue Toprol, valsartan, amlodipine.
-Continue aspirin 81mg daily
-If echo stable, for possible d/c later today.
Progress Note - Solar Manufacturer'S Representative
Subjective
Date of Service: September 21, 2024
No chest pain or SOB.
Objective
Labs:
09/21/24 01:55
09/21/24 01:55
Labs
Hgb 13.6 g/dL (12.0-16.0) 09/21/24 01:55
Hct 41.1 % (37.0-47.0) 09/21/24 01:55
Plt Count 239 10^3/uL (130-400) 09/21/24 01:55
PT 13.0 Sec (11.4-14.6) 09/12/24 08:31
INR 0.93 09/12/24 08:31
Sodium 138 mmol/L (135-145) 09/21/24 01:55
Potassium 4.5 mmol/L (3.5-5.1) 09/21/24 01:55
BUN 17 mg/dl (7-17) 09/21/24 01:55
Creatinine 0.6 mg/dL (0.6-1.0) 09/21/24 01:55
Glucose 171 mg/dl (70-99) H 09/21/24 01:55
Vital Signs and I&O:
Vital Signs
Temp Pulse Resp BP Pulse Ox
97.9 F 76 18 128/52 93
09/21/24 08:25 09/21/24 08:15 09/21/24 08:25 09/21/24 08:14 09/21/24 08:57
Vital Signs
Temp Pulse Resp BP Pulse Ox
97.9 F 76 18 128/52 93
09/21/24 08:25 09/21/24 08:15 09/21/24 08:25 09/21/24 08:14 09/21/24 08:57
Intake & Output
09/19/24 09/20/24 09/21/24 09/22/24
06:59 06:59 06:59 06:59
Intake Total 1400 / 1400
Output Total 250 / 250
Balance 1150 / 1150
Physical Exam
Physical Exam
GEN: No distress, awake, alert, oriented x3
HEENT: supple, anicteric, mmm
LUNGS: CTA b/l, no wheezes/rales
CV: Reg, S1/S2, 1/6 syst murmur
EXT: No clubbing, cyanosis, or edema
NEURO: Gross non-focal
SKIN: Warm, dry, no rash
--- NOTE | 2024-09-21 11:14 | W.DCSUMMARY ---
Addendum entered and electronically signed by Jane Farrar PA-C 09/21/24 12:41:
Patient was also instructed to follow up with her PRP Dr. Isabell Serrano due to newly diagnosed diabetes mellitus type II with HgA1c of 8.0.
Original Note:
Discharge Summary
Discharge Data
Date of Admission: 09/20/24
Date of Discharge: 09/21/24
Total time spent discharging patient (in min): 40
-
Pending Results: No
Hospital Course
Primary care physician:
Dr. Isabell Serrano
Outpatient aircraft avionics technician:
Dr. Hakeem Soria
Inpatient consultants:
[facility]
Procedures:
1. Right transfemoral transcatheter aortic valve replacement with placement of #23 [employer] evolute fracture with 1 recaptures/reposition
Primary Diagnosis:
1. Status post prior aortic valve replacement with #21 Daniel in 2016
2. Severe prosthetic valve aortic valve stenosis
3. History of permanent pacemaker insertion
4. Hypertension
5. Hyperlipidemia
6. Osteoporosis
7. Nephrolithiasis
8. Diabetes mellitus type 2
9. Morbid obesity BMI 41.7
10. History of kidney stones status post lithotripsy
11 history of cholecystectomy
Secondary Diagnoses:
1. Status post prior aortic valve replacement with #21 Daniel in 2016
2. Severe prosthetic valve aortic valve stenosis
3. History of permanent pacemaker insertion
4. Hypertension
5. Hyperlipidemia
6. Osteoporosis
7. Nephrolithiasis
8. Diabetes mellitus type 2
9. Morbid obesity BMI 41.7
10. History of kidney stones status post lithotripsy
11 history of cholecystectomy
HPI:
Patient is a 68-year-old female who underwent prior aortic valve replacement with a bioprosthetic valve in 2016 and developed severe prosthetic aortic valve stenosis. Patient was seen in consultation as an outpatient by attending physician as well
as TAVR team. And deemed an appropriate candidate to undergo transcatheter aortic valve replacement.
Hospital course:
Patient presented to the hybrid OR room on the date described above for procedure described above. Patient tolerated procedure well. Procedure was performed using general anesthesia with intubation. She was successfully extubated in the hybrid OR
room. Patient was transported to [facility] holding for recovery. Postoperative EKG revealed AV paced rhythm at 63 bpm. Postoperatively the patient was necessitated a brief period of norepinephrine for hemodynamic support. Levo was weaned off and
the patient was transported to IVU. She was saturating 91 to 99% on 6 L nasal cannula.
On postoperative day #1 the patient remained AV paced at 60 bpm. She continued aspirin only for her TAVR valve. bilateral groins remained soft and nontender without any evidence of bleeding. She was seen on morning rounds by attending physician
as well as TAVR coordinator and deemed appropriate candidate to be discharged to home.
Home medication changes:
Acetaminophen 650 mg p.o. every 6 hours as needed for pain
Continue all preoperative home medications
Discharge Plan
-
Patient Disposition: Home (Routine Discharge)
Discharge Diagnosis/Procedures: TF TAVR (CHANELL)
Condition: Good
Diet: Low Fat, Low Cholesterol and 2 Gram Sodium
Activity: As tolerated
Driving Restrictions: No driving for 1 week
Bathing Restrictions: OK to Shower
Others Tests: Your 30-day follow up echocardiogram:10/25 @ 12:40pm at the [facility].
You will need prophylactic antibiotics prior to any dental procedure.
Other Services: Cardiac Rehab
Wound Care: NO lotions, powders, or creams to puncture sites
Specialty Instructions: Weigh Daily- Call MD for wt gain/loss 3 lbs overnight/5 lbs in 1 week
Referrals:
CT Transitional Care Nurse [Outside]
Referral Note: The Cardiothoracic Transitional Care Nurse will call you to set up a visit in 1-2 days.
Isabell Serrano DO [Family Provider, Internal Medicine]
Taryn Wallace CRNP [Specified Professional Personl, Cardiology] - 09/05/25 11:00 am
Prescriptions:
New
acetaminophen 325 mg Tablet
650 mg PO Q4HPRN PRN (Reason: NEGRON, mild pain, or fever >101F) Qty: 0 0RF
Rx Instructions:
Please purchase over the counter
Continued
(DME) Contour Next Test Strips Strip
Qty: 100 0RF
Rx Instructions:
Pt testing 4 times a day
(DME) lancets [Color Lancets] 21 gauge Misc
Qty: 100 0RF
Rx Instructions:
Pt testing 4 times a day
(DME) pen needle, diabetic [Seda 2nd Gen Pen Needle] 32 gauge x ' Needle
Qty: 1,200 0RF
Rx Instructions:
As Directed
aspirin 81 mg Tablet,Delayed Release (Dr/Ec)
81 mg PO DAILY Qty: 0 0RF
simvastatin 40 mg tablet
40 mg PO DAILY@1700 Qty: 0 0RF
amlodipine 10 mg Tablet
10 mg PO DAILY Qty: 0 0RF
valsartan 320 mg tablet
320 mg PO DAILY@1700 Qty: 0 0RF
omeprazole 20 mg capsule,delayed release(DR/EC)
20 mg PO DAILY@1700 Qty: 0 0RF
metoprolol succinate 25 mg tablet extended release 24 hr
25 mg PO DAILY@1700 Qty: 0 0RF
insulin aspart U-100 [Novolog FlexPen U-100 Insulin] 100 unit/mL (3 mL) Insulin Pen
1 sliding scale dose SC DIRECTED Qty: 0 0RF
(DME) pen needle, diabetic [Seda 2nd Gen Pen Needle] 32 gauge x ' needle
See Rx Instructions .Route Qty: 100 0RF
Rx Instructions:
As directed
Care Plan Goals
Care Plan Goals:
Problem: Readiness for enhanced knowledge related to diagnosis and treatment plan
Goal: Understand your diagnosis and treatment plan needs, including medications if applicable.
Instructions: Know your diagnosis, underlying causes and treatment plan options, including medications if applicable. Consult with your health care team to learn about your diagnosis and treatment plan, including medications if applicable.
Discharge Date and Time
Print Language: UKRAINIAN
--- NOTE | 2024-09-21 11:48 | CM ---
Chart reviewed. Patient is independent of ADLS, lives with her in a [address], 0 KATHRINE, 0 DME. Plan is for the patient to return home with CT Transitional RN.
[2024-09-21 11:59] VITALS: BP 127/54
--- NOTE | 2024-09-21 12:35 | PTCARENOTE ---
IV and tele removed. Discharge instructions reviewed w/ pt and verbalizes understanding. Belongings collected and sent home w/ pt. Escorted via WC and staff assist to home.
== END 2024-09-21 12:51 | disposition home or self-care (01) | DRG 266 ==
LOC: IVU 09:00
PROVIDERS: Anesthesiology; Physician Assistant Medical; ADMITTING PHYSICIAN Thoracic Surgery (Cardiothoracic Vascular Surgery); CONSULT PHYSICIAN Internal Medicine Interventional Cardiology; FAMILY PHYSICIAN Internal Medicine
PROC: B24BZZ4 Ultrasonography of Heart with Aorta, Transesophageal (ICD-10-PCS; 2024-09-20)
PROC: 02RF38Z Replacement of Aortic Valve with Zooplastic Tissue, Percutaneous Approach (ICD-10-PCS; 2024-09-20)
DX: T82.857A Stenosis of other cardiac prosthetic devices, implants and grafts, initial encounter (principal); I50.43 Acute on chronic combined systolic (congestive) and diastolic (congestive) heart failure; Z68.41 Body mass index [BMI] 40.0-44.9, adult; I35.0 Nonrheumatic aortic (valve) stenosis; Y83.1 Surgical operation with implant of artificial internal device as the cause of abnormal reaction of the patient, or of later complication, without mention of misadventure at the time of the procedure; I11.0 Hypertensive heart disease with heart failure; E78.5 Hyperlipidemia, unspecified; E11.9 Type 2 diabetes mellitus without complications; E66.813 Obesity, class 3; M81.0 Age-related osteoporosis without current pathological fracture; Z87.442 Personal history of urinary calculi; Z87.891 Personal history of nicotine dependence; Z95.0 Presence of cardiac pacemaker; Z79.84 Long term (current) use of oral hypoglycemic drugs
CPT/HCPCS: 33361; 36415; 71045; 71046; 80048; 80053; 81003; 81015; 82248; 82962; 83036; 83880; 85025; 85027; 85347; 85610; 86850; 86900; 86901; 87070; 87086; 93005; 93308; 93312; 93320; 93321; 93325; C1760; C1769; C1894; Q9967